=== PATIENT | male | born 1945 | race Caucasian/White ===

== ENCOUNTER 2016-06-27 01:06 | Emergency (ER) | payer BC ==
[~2016-06-27] VITALS: Ht 170.2 cm; Wt 107.5 kg
[~2016-06-27 01:06] MED LIST: ASPCH81 PO; BNC/20125 PO; CHOL1TAB4 PO; CIPR-255 PO; MULT-506 PO
[2016-06-27 01:09] VITALS: TEMP 36.8; Ht 170.2 cm; Wt 107.5 kg
[2016-06-27] MEDS ORDERED: SILD100T PO (01:19)
[2016-06-27] MEDS ORDERED: KETOROLAC TROMETHAMINE 30 MG/ML VIAL IV STA (01:22)
[2016-06-27] MEDS ORDERED: SODIUM CHLORIDE 0.9% 500ML 500 ML IV STA (01:22)
[2016-06-27 01:47] LABS: BASO % 0.3 %; BASO ABS # 0.02 K/uL (0-0.2); COMPLETE YES; EOS % 1.6 %; HEMATOCRIT 49.2 % (42-52); IG% 0.2 %; LYMPH % 19.8 %; LYMPH ABS # 1.25 K/uL (1.2-3.4); MEAN CELL VOLUME 89.9 fL (80-100); MEAN CORPUSCULAR HGB CONC 35.6 g/dl (32-36); MEAN PLATELET VOLUME 10.1 fL (7.4-10.4); MONO % 8.9 %; NEUT % 69.2 %; PLATELET COUNT 133 K/uL (130-400); RED BLOOD COUNT 5.47 M/uL (4.7-6.1)
[2016-06-27 02:07] LABS: BUN/CREATININE RATIO 27.2 (10-20); CALCIUM 8.8 mg/dl (8.5-10.1); CREATININE 0.87 mg/dl (0.60-1.40)
[2016-06-27 02:10] LABS: ALB/GLOB RATIO 1.4 (0.9-2)
[2016-06-27 03:50] VITALS: BP 140/85; PULSE 75; O2SAT 95
[2016-06-27 04:05] LABS: URINE APPEARANCE CLEAR (CLEAR); URINE BILIRUBIN NEG (NEG); URINE COLOR YELLOW; URINE NITRITE NEG (NEG); URINE SPECIFIC GRAVITY 1.018 (1.000-1.030); UROBILINOGEN NEG (NEG); ZZUR CULT IF INDIC CLEAN CATCH NO
[2016-06-27 04:06] LABS: MANUAL MICROSCOPIC REQUIRED? NO; REVIEW REQ? NO
[2016-06-27] MEDS ORDERED: CIPROFLOXACIN 500MG HOME PACK PO ONE (04:30)
[2016-06-27] MEDS ORDERED: CIPROFLOXACIN 500 MG TAB PO STA (04:30)
[2016-06-27] MEDS ORDERED: CIPR-255 PO ×2 (04:34→04:53)
--- NOTE | 2016-06-27 04:35 | EMERGENCY ROOM VISIT NOTE ---
History First contact with patient: 01:13 Chief Complaint: FLANK PAIN Stated Complaint: PAIN ON LEFT SIDE NEAR KIDNEY History of Present Illness The patient is a 71 year old male who presents to the Emergency Department by private vehicle for evaluation of his LEFT sided flank pain. He developed pain yesterday but reports increasing intensity this evening while attempting to sleep. He does report a history of kidney stones which was complicated by obstructive stone with infection and subsequent sepsis. He has followed with his urologist from [facility] for the past few years with particular focus on his prostate. He reports having no issues until yesterday. He reports feeling somewhat nauseated when the pain was most intense. He denies any radiation into his groin or testicle. He denies any burning with urination or blood in his urine. He rates his current discomfort as a 2/10. He denies any headaches , dizziness, lightheadedness, chest pain, palpitations, pleuritic pain, shortness of breath, hematemesis, hematochezia, melena, hematuria, or dysuria. Review of Systems A complete 10-point Review of Systems was discussed with the patient, with pertinent positives and negatives listed in the History of Present Illness. All remaining Review of Systems questions can be considered negative unless otherwise specified. Social History Smoking Status: Never Smoker Alcohol Use: occasionally Drug Use: none Marital Status: Housing Status: lives with family Occupation Status: retired Current/Historical Medications Scheduled Aspirin (Aspirin Tab-Chewable *), 81 MG PO DAILY Cholecalciferol (Vitamin D-3), 5,000 UNITS PO DAILY Ciprofloxacin Hcl (Cipro), 500 MG PO BID Multivitamin (Multivitamin), 1 TAB PO DAILY Sildenafil Citrate (Viagra), 100 MG PO PRN Allergies Coded Allergies: No Known Allergies (Unverified , 06/27/16) Physical Exam Vital Signs Date Time Temp Pulse Resp B/P Pulse Ox O2 Delivery O2 Flow Rate FiO2 06/27/16 03:50 75 20 140/85 95 Room Air 06/27/16 01:09 36.8 74 20 174/110 94 Room Air Pain Rating (0-10): 2 Physical Exam VITAL SIGNS - Vital signs and nursing notes were reviewed. GENERAL - 71-year-old male appearing his stated age who is in no acute distress. Communicates well with provider and answers questions appropriately. LUNGS - Chest wall symmetric without accessory muscle use, intercostals retractions, or central cyanosis. Normal vesicular breath sounds CTA B/L. No wheezes, rales, or rhonchi appreciated. CARDIAC - RRR with S1/S2. No murmur, rubs, or gallops appreciated. ABDOMEN - Abdominal contour protuberant and without pulsations or visible masses. BS normoactive all four quadrants. No tenderness to palpation appreciated throughout. No guarding. No Rebound Tenderness. Negative Rovsing's. Negative Infante's. No palpable masses, hepatosplenomegaly, or ascites noted. Positive LEFT sided CVA tenderness to percussion. PSYCH - A&Ox3 and cooperates fully with examiner. Pt is very pleasant and interacts well with examiner. Medical Decision & Procedures ER Provider Diagnostic Interpretation: Radiological imaging and reports were reviewed by myself. Radiologist's Interpretation per [facility] as follows: CT ABDOMEN & PELVIS: Basilar atelectasis and/or scarring Hepatic cysts Couple of nonobstructing intrarenal stones Bilateral perinephritic stranding, edema is nonspecific No hydronephrosis or evidence of ureteral or bladder stone 1 cm high density focus left kidney may represent a complex cyst or solid lesion May follow up with nonemergent renal ultrasound No bowel dilatation or free air A few noninflamed colonic diverticula Normal caliber appendix without secondary signs Laboratory Results 06/27/16 01:34 Red Blood Count 5.47, Mean Corpuscular Volume 89.9, Mean Corpuscular Hemoglobin 32.0, Mean Corpuscular Hemoglobin Concent 35.6, Mean Platelet Volume 10.1, Neutrophils (%) (Auto) 69.2, Lymphocytes (%) (Auto) 19.8, Monocytes (%) (Auto) 8.9, Eosinophils (%) (Auto) 1.6, Basophils (%) (Auto) 0.3, Neutrophils # (Auto) 4.36, Lymphocytes # (Auto) 1.25, Monocytes # (Auto) 0.56, Eosinophils # (Auto) 0.10, Basophils # (Auto) 0.02 06/27/16 01:34 Test 06/27/16 01:34 06/27/16 03:50 White Blood Count 6.30 K/uL (4.8-10.8) Red Blood Count 5.47 M/uL (4.7-6.1) Hemoglobin 17.5 g/dL (14.0-18.0) Hematocrit 49.2 % (42-52) Mean Corpuscular Volume 89.9 fL (80-100) Mean Corpuscular Hemoglobin 32.0 pg (25-34) Mean Corpuscular Hemoglobin Concent 35.6 g/dl (32-36) Platelet Count 133 K/uL (130-400) Mean Platelet Volume 10.1 fL (7.4-10.4) Neutrophils (%) (Auto) 69.2 % Lymphocytes (%) (Auto) 19.8 % Monocytes (%) (Auto) 8.9 % Eosinophils (%) (Auto) 1.6 % Basophils (%) (Auto) 0.3 % Neutrophils # (Auto) 4.36 K/uL (1.4-6.5) Lymphocytes # (Auto) 1.25 K/uL (1.2-3.4) Monocytes # (Auto) 0.56 K/uL (0.11-0.59) Eosinophils # (Auto) 0.10 K/uL (0-0.5) Basophils # (Auto) 0.02 K/uL (0-0.2) RDW Standard Deviation 43.1 fL (36.4-46.3) RDW Coefficient of Variation 13.0 % (11.5-14.5) Immature Granulocyte % (Auto) 0.2 % Immature Granulocyte # (Auto) 0.01 K/uL (0.00-0.02) Anion Gap 11.0 mmol/L (3-11) Est Creatinine Clear Calc Drug Dose 93.7 ml/min Estimated GFR () 102.1 Estimated GFR (Non- 88.1 BUN/Creatinine Ratio 27.2 (10-20) Calcium Level 8.8 mg/dl (8.5-10.1) Magnesium Level 2.0 mg/dl (1.8-2.4) Total Bilirubin 0.5 mg/dl (0.2-1) Aspartate Amino Transf (AST/SGOT) 23 U/L (15-37) Alanine Aminotransferase (ALT/SGPT) 34 U/L (12-78) Alkaline Phosphatase 56 U/L (45-117) Total Protein 7.1 gm/dl (6.4-8.2) Albumin 4.2 gm/dl (3.4-5.0) Globulin 2.9 gm/dl (2.5-4.0) Albumin/Globulin Ratio 1.4 (0.9-2) Lipase 127 U/L (73-393) Urine Color YELLOW Urine Appearance CLEAR (CLEAR) Urine pH 5.0 (4.5-7.5) Urine Specific [place] 1.018 (1.000-1.030) Urine Protein NEG (NEG) Urine Glucose (UA) NEG (NEG) Urine Ketones TRACE (NEG) Urine Occult Blood NEG (NEG) Urine Nitrite NEG (NEG) Urine Bilirubin NEG (NEG) Urine Urobilinogen NEG (NEG) Urine Leukocyte Esterase TRACE (NEG) Urine WBC (Auto) 1-5 /hpf (0-5) Urine RBC (Auto) 0-4 /hpf (0-4) Urine Hyaline Casts (Auto) 1-5 /lpf (0-5) Urine Epithelial Cells (Auto) 10-20 /lpf (0-5) Urine Bacteria (Auto) NEG (NEG) Medications Administered Medications (Trade) Dose Ordered Sig/Jerry Route Start Time Stop Time Status Last Admin Dose Admin Sodium Chloride (Nss 500ml) 500 ml @ 999 mls/hr Q31M STAT IV 06/27/16 01:22 06/27/16 01:52 DC 06/27/16 01:22 999 MLS/HR Ketorolac Tromethamine (Toradol Inj) 30 mg NOW STAT IV 06/27/16 01:22 06/27/16 01:24 DC 06/27/16 01:22 30 MG Ciprofloxacin (Cipro Tab) 500 mg NOW STAT PO 06/27/16 04:30 06/27/16 04:32 DC 06/27/16 04:30 500 MG Ciprofloxacin (Cipro 500MG Home Pack) 1 homepack UD ONCE PO 06/27/16 04:30 06/27/16 04:32 DC 06/27/16 04:30 1 HOMEPACK ED Course Patient was seen and evaluated by myself. Labs were drawn, saline lock in place. The patient was hydrated with a 500 mL normal saline bolus. He was treated with 30 g Toradol intravenously for pain. He declines a think stronger. CT of the abdomen and pelvis without contrast was obtained. Laboratory results demonstrate no acute leukocytosis, worrisome anemia, or bandemia. The patient has no significant electrolyte abnormalities. Urinalysis does not suggest infection. CT concerning for perinephritic stranding bilaterally despite the lack of stone. His urine is not concerning for infection or worsening symptoms consistent with pyelonephritis. Regardless , given the patient's significant history, I did elect to treat the patient with 500 mg Cipro orally. He'll replace a short course. He'll follow with his urologist from today's visit. He will follow up with a renal ultrasound. He will return for any changing or worsening symptoms. Patient discharged home afebrile and in good condition. Medical Decision Given the patient's presentation and stated complaint, I did elect to perform the above-mentioned workup. The patient presents today with LEFT-sided flank pain. He has no fever leukocytosis. His exam is consistent with some mild LEFT -sided CVA tenderness. The patient does have a significant history of his previous surgeries and manipulation. Urinalysis does not suggest infection, however urine culture is pending. He was treated with oral Cipro given his findings consistent with perinephric straining. He will follow closely with his urologist from today's visit. He will return for any changing or worsening symptoms. Patient discharged home afebrile and in good condition. In the evaluation and treatment of this patient, the following differential diagnoses were considered: Appendicitis, Diverticulitis, Diverticulosis, Colitis , Ischemic Colitis, Inflammatory Bowel Disease, Irritable Bowel Disease, Testicular Torsion, Kidney Stone, Pyelonephritis, Hydronephrosis, Cholecystitis , Ascending Cholangitis, Choledocholithiasis, GERD. Impression Primary Impression: Flank pain Additional Impression: perinephritic stranding Departure Information Dispostion Home / Self-Care Condition GOOD Prescriptions Ciprofloxacin Hcl (CIPRO) 500 Mg Tab 500 MG PO BID for 7 Days, #14 TAB Prov: Aj Ruelas PA-C 06/27/16 Referrals Harsha Nava M.D. (PCP) Patient Instructions A Signature Page, My [facility] Additional Instructions You have been treated in the Emergency Department today for flank pain. You were prescribed Cipro to be taken as prescribed. This is an antibiotic. All antibiotics have the potential to cause diarrhea. Stop this medication and contact a medical provider if you were to develop any significant adverse side effects including: wheezing, shortness of breath, passing out, vomiting, or a diffuse rash. Always take antibiotics as directed and COMPLETE the ENTIRE course regardless of the improvement of your symptoms. For pain control, you can use the following [id number]-[id number] medicines (if >12 yo): - Regular strength (325mg/tab) Tylenol (acetaminophen) 2 tabs every 4-6 hours as needed. Do not exceed 12 tablets in a 24 hour period. Avoid taking more than 4 grams (4000 mg) of Tylenol per day. This includes any other sources of acetaminophen you may take on a regular basis. - Regular strength (200 mg/tab) Advil (ibuprofen) 1-2 tabs every 4-6 hours as needed. Do not exceed a dose of 3200 mg per day. You have been provided the contact information for the on-call Urologist. You should contact the Urologist's office tomorrow to establish a follow-up appointment from today's Emergency Department visit. Return to the Emergency Department if your symptoms persist despite the treatment plan outlined above or if you develop the following symptoms: intractable pain, fever, chills, or large amounts of blood in your urine.
--- NOTE | 2016-06-27 09:07 | DIAGNOSTIC IMAGING REPORT ---
ABDOMEN AND PELVIS CT WITHOUT CONTRAST CT DOSE: 1666.44 mGy.cm HISTORY: LEFT sided flank pain - h/o ureteral shunt w/ repair TECHNIQUE: Multiaxial CT images of the abdomen and pelvis were performed without the use of intravenous and oral contrast according to the standard department stone protocol. COMPARISON STUDY: Abdomen and pelvis CT 02/15/2014. FINDINGS: Bibasilar linear densities consistent with subsegmental atelectasis. No suspicious lytic or blastic osseous lesions. The unenhanced spleen, pancreas, gallbladder, and adrenal glands are unremarkable. There is a punctate nonobstructing stone within the lower pole of the right kidney. There is also a punctate nonobstructing stone within the lower pole of the left kidney. No hydronephrosis. No ureteral calculi. The bladder is unremarkable. Multiple prostate calcifications. No retroperitoneal lymphadenopathy. Multiple hypodense lesions seen scattered throughout the liver. These likely represent hepatic cysts. These are not significantly changed. No pelvic free fluid. Suboptimal evaluation for bowel pathology due to the lack of intravenous and oral contrast. However, there is no definite bowel wall thickening or obstruction. Colonic diverticulosis. 1 cm hyperdense lesion within the left kidney. Mild bilateral perinephric edema is not significantly change. This is likely chronic. Normal appendix. IMPRESSION: 1. Bilateral nephrolithiasis. No hydronephrosis. 2. Hepatic cysts. 3. A 1 cm hyperdense lesion within the left kidney. This is incompletely characterized on this noncontrast study but may represent a hyperdense cyst. Follow-up nonemergent renal ultrasound can be used for confirmation. 4. Colonic diverticulosis. 5. Normal appendix. 6. No definite bowel wall thickening or obstruction on this noncontrast study. Electronically signed by: Jhoan Loyd M.D. 06/27/2016 9:05 AM Dictated Date/Time: 06/27/2016 8:57 AM
== END 2016-06-27 04:58 | disposition home or self-care (01) ==
LOC: C.EDB 01:07
DX: R10.9 Unspecified abdominal pain (principal); N15.1 Renal and perinephric abscess; Z79.82 Long term (current) use of aspirin

== ENCOUNTER → 2016-10-10 | Outpatient (CLI) | payer BC ==
[~2016-10-10] MED LIST changes: -BNC/20125 PO; +SILD100T PO
--- NOTE | 2016-10-10 12:53 | DIAGNOSTIC IMAGING REPORT ---
LEFT KNEE 3 VIEWS HISTORY: Left knee injury and pain. M25.562 COMPARISON: None. FINDINGS: There is no fracture or dislocation. No significant knee effusion. Tiny marginal osteophytes. Soft tissues are unremarkable. No radiopaque foreign bodies. IMPRESSION: No fractures. Electronically signed by: Jhoan Loyd M.D. 10/10/2016 12:51 PM Dictated Date/Time: 10/10/2016 12:43 PM
== END | disposition home or self-care (01) ==
LOC: C.RAD 12:13
PROVIDERS: ATTEND Family Medicine Adolescent Medicine
DX: M25.562 Pain in left knee (principal)

== ENCOUNTER → 2018-01-18 | Day surgery (SDC) | payer BC ==
[2018-01-13 08:19] VITALS: Ht 170.2 cm; Wt 113.6 kg
[~2018-01-18] VITALS: Ht 170.2 cm; Wt 113.6 kg
[~2018-01-18] MED LIST changes: -ASPCH81 PO; +ASPI81CH2 PO; -CHOL1TAB4 PO; +CHOL1TAB76 PO; -CIPR-255 PO; +GLC/500 PO; +IRBE1TAB50 PO; +LIDOCAINE HCL 2% 2 ML VIAL (20MG/ML) ONE; +MIDAZOLAM HCL 1 MG/ML 2ML VIAL ONE; +NAPR1TAB9 PO; +PROPOFOL IV EMULSION 10 MG/ML 20 ML VIAL ONE
[2018-01-18 12:41] VITALS: TEMP 36.4
--- NOTE | 2018-01-18 13:07 | Endo History and Physical ---
History & Physical Date of Service: Jan 18, 2018. Chief Complaint: Screening Referring Physician: Dr. Harsha Nava History of Present Illness screening colon Past Surgical History Hx Cardiac Surgery: Yes (HEART CATH, NO STENTS 5 YRS AGO) Hx Internal Defibrillator: No Hx Pacemaker: No Hx Abdominal Surgery: No Hx of Implantable Prosthesis: No Hx Cancer Surgery: No Hx Thoracic Surgery: No Hx Orthopedic: No Hx Urinary Tract Surgery: Yes (SCROTAL HERNIA, KIDNEY SX, TURP?, PROSTATECTOMY) Family History None Social History Smoking Status: Former Smoker Hx Substance Use: No Hx Alcohol Use: Yes (OCCASIONAL BEER) Allergies Coded Allergies: No Known Allergies (Verified , 01/18/18) Current Medications Reported Home Medications Medications Dose Route/Sig Max Daily Dose Days Date Category Irbesartan 300 Mg Tab 1 Tab PO QAM 01/13/18 Reported Aleve (Naproxen) 220 Mg Tab 440 Mg PO DAILY PRN 01/13/18 Reported Glucophage (Metformin Hcl) 500 Mg Tab 500 Mg PO DAILY 01/13/18 Reported D 2000 (Cholecalciferol) 2,000 Unit Tab 1 Tab PO DAILY 01/13/18 Reported Aspirin 81 Mg Chw 1 Tab PO DAILY 01/13/18 Reported Viagra (Sildenafil Citrate) 100 Mg Tab 100 Mg PO PRN 06/27/16 Reported Multivitamin (Multivitamins) Tab 1 Tab PO DAILY 01/18/11 Reported Vital Signs Weight (Kilograms): 113.64 Height (Feet): 5 Height (Inches): 7 Date Time Temp Pulse Resp B/P (MAP) Pulse Ox O2 Delivery O2 Flow Rate FiO2 01/18/18 12:41 36.4 70 20 165/95 (118) 94 Room Air Physical Exam General Appearance: WD/WN, no apparent distress Respiratory/Chest: Auscultation: breath sounds normal Cardiovascular: Heart Auscultation: RRR Abdomen: Bowel Sounds: normal Inspection & Palpation: soft, non-distended, no tenderness, guarding & rebound Assessment and Plan colonscopy screening
--- NOTE | 2018-01-18 14:09 | Discharge Instructions ---
Endoscopy Patient Instructions Date / Procedure(s) Performed Jan 18, 2018. Colonoscopy Allergy Information Coded Allergies: No Known Allergies (Verified , 01/18/18) Discharge Date / Findings Jan 18, 2018. colon with polyp removal Medication Instructions Stopped Medication(s): Patient was told to take only his bp med this am. Restart Stopped Medication(s): Reported Home Medications Medications Dose Route/Sig Max Daily Dose Days Date Category Irbesartan 300 Mg Tab 1 Tab PO QAM 01/13/18 Reported Aleve (Naproxen) 220 Mg Tab 440 Mg PO DAILY PRN 01/13/18 Reported Glucophage (Metformin Hcl) 500 Mg Tab 500 Mg PO DAILY 01/13/18 Reported D 2000 (Cholecalciferol) 2,000 Unit Tab 1 Tab PO DAILY 01/13/18 Reported Aspirin 81 Mg Chw 1 Tab PO DAILY 01/13/18 Reported Viagra (Sildenafil Citrate) 100 Mg Tab 100 Mg PO PRN 06/27/16 Reported Multivitamin (Multivitamins) Tab 1 Tab PO DAILY 01/18/11 Reported Reported Home Medications Medications Dose Route/Sig Max Daily Dose Days Date Category Irbesartan 300 Mg Tab 1 Tab PO QAM 01/13/18 Reported Aleve (Naproxen) 220 Mg Tab 440 Mg PO DAILY PRN 01/13/18 Reported Glucophage (Metformin Hcl) 500 Mg Tab 500 Mg PO DAILY 01/13/18 Reported D 2000 (Cholecalciferol) 2,000 Unit Tab 1 Tab PO DAILY 01/13/18 Reported Aspirin 81 Mg Chw 1 Tab PO DAILY 01/13/18 Reported Viagra (Sildenafil Citrate) 100 Mg Tab 100 Mg PO PRN 06/27/16 Reported Multivitamin (Multivitamins) Tab 1 Tab PO DAILY 01/18/11 Reported Provider Instructions Activity Restrictions - No exercising or heavy lifting for 24 hours. - Do not drink alcohol the day of the procedure. - Do not drive a car or operate machinery until the day after the procedure. - Do not make any important decisions or sign important papers in 24 hours after the procedure. Following Day: - Return to full activity which may include returning to work/school. Diet Start your diet with liquids and light foods (jello, soup, juice, toast). Then eat your usual diet if not nauseated. Treatment For Common After Affects For mild abdominal pain, bloating, or excessive gas: - Rest - Eat lightly - Lie on right side Follow-Up Information Follow-up with Dr. Harsha Nava as scheduled Anesthesia Information What You Should Know You have had a procedure that required some medicine to reduce anxiety and discomfort. This treatment is called moderate sedation. After receiving the treatment, you may be sleepy, but you will be able to breathe on your own. The effects of the treatment may last for several hours. Follow these instructions along with Activity/Diet recommendations noted above: * Do NOT do anything where dizziness or clumsiness would be dangerous. * Rest quietly at home today, then you can be up and about tomorrow. * Have a responsible person stay with you the rest of today. * You may have had an I.V. today. If so, you may take the dressing off later today. Recommendations Call your doctor if: * Trouble breathing * Continuous vomiting for more than 24 hours * Temperature above 101 degrees * Severe abdominal pain or bloating * Pain not relieved by pain medicine ordered * There is increased drainage or redness from any incision * A large amount of rectal bleeding greater than 2-3 tablespoons. (If you had a polyp/s removed or have hemorrhoids, a small amount of blood - from the rectum is to be expected.) * You have any unanswered questions or concerns. IN THE EVENT OF A SERIOUS EMERGENCY, GO TO THE NEAREST EMERGENCY ROOM Your discharge instructions were prepared by provider London Banegas. Patient Instructions Signature Page Delmer Leiva Patient (or Guardian) Signature/Date: I have read and understand the instructions given to me by my caregivers. Caregiver/RN/Doctor Signature/Date: The above-named patient and/or guardian has received patient instructions on this date. + Original Patient Signature Page (only) stays with chart. Please make copy for patient.
--- NOTE | 2018-01-18 14:17 | GI REPORT ---
Patient Name: Delmer Leiva Procedure Date: 01/18/2018 12:48 PM Date of : 1945 Admit Type: Outpatient Age: 72 Gender: Male Attending MD: London Banegas MD Procedure: Colonoscopy Providers: London Banegas MD Referring MD: Harsha Nava Indications: Screening for colorectal malignant neoplasm Medicines: Propofol per Anesthesia Complications: No immediate complications. Estimated blood loss: Minimal. Estimated Blood Loss: Estimated blood loss was minimal. Procedure: Pre-Anesthesia Assessment: - Prior to the procedure, a History and Physical was performed, and patient medications and allergies were reviewed. The patient's tolerance of previous anesthesia was also reviewed. The risks and benefits of the procedure and the sedation options and risks were discussed with the patient. All questions were answered, and informed consent was obtained. Prior Anticoagulants: The patient has taken no previous anticoagulant or antiplatelet agents. ASA Grade Assessment: II - A patient with mild systemic disease. After reviewing the risks and benefits, the patient was deemed in satisfactory condition to undergo the procedure. After I obtained informed consent, the scope was passed under direct vision. Throughout the procedure, the patient's blood pressure, pulse, and oxygen saturations were monitored continuously. The scope was introduced through the anus and advanced to the cecum, identified by appendiceal orifice and ileocecal valve. The colonoscopy was performed without difficulty. The patient tolerated the procedure well. The quality of the bowel preparation was good. Findings: The perianal and digital rectal examinations were normal. Pertinent negatives include normal sphincter tone, no palpable rectal lesions and no anal lesion or abnormality was detected. A 5 mm polyp was found in the ileocecal valve. The polyp was sessile. The polyp was removed with a cold snare. Resection and retrieval were complete. Estimated blood loss was minimal. Verification of patient identification for the specimen was done by the physician and marine engineering technicians using the patient's name and medical record number. A 4 mm polyp was found in the sigmoid colon. The polyp was sessile. The polyp was removed with a cold snare. Resection and retrieval were complete. Estimated blood loss was minimal. Verification of patient identification for the specimen was done by the physician and marine engineering technicians using the patient's name and medical record number. A 3 mm polyp was found in the rectum. The polyp was sessile. The polyp was removed with a cold snare. Resection and retrieval were complete. Estimated blood loss was minimal. Verification of patient identification for the specimen was done by the physician and marine engineering technicians using the patient's name and medical record number. The exam was otherwise without abnormality. The retroflexed view of the distal rectum and anal verge was normal and showed no anal or rectal abnormalities. Impression: - One 5 mm polyp at the ileocecal valve, removed with a cold snare. Resected and retrieved. - One 4 mm polyp in the sigmoid colon, removed with a cold snare. Resected and retrieved. - One 3 mm polyp in the rectum, removed with a cold snare. Resected and retrieved. - The examination was otherwise normal. - The distal rectum and anal verge are normal on retroflexion view. Recommendation: - Discharge patient to home (ambulatory). - Resume regular diet. - Await pathology results. - Repeat colonoscopy for surveillance based on pathology results. - Return to referring physician as previously scheduled. MD London Calixto MD 01/18/2018 2:16:59 PM This report has been signed electronically. Note Initiated On: 01/18/2018 12:48 PM Number of Addenda: 0 I attest to the content of the Intraoperative Record and orders documented therein, exceptions below {[id number]}
--- NOTE | 2018-01-18 14:21 | Anesthesiology Progress Note ---
Anesthesia Post Op Note Date & Time Jan 18, 2018 at 14:21 Vital Signs Pain Intensity: 0 Vital Signs Past 12 Hours Date Time Temp Pulse Resp B/P (MAP) Pulse Ox O2 Delivery O2 Flow Rate FiO2 01/18/18 14:14 75 20 137/66 (89) 97 Room Air 01/18/18 14:06 61 20 142/87 (105) 93 Room Air 01/18/18 13:50 68 20 141/87 (105) 93 Room Air 01/18/18 12:41 36.4 70 20 165/95 (118) 94 Room Air Notes Mental Status: alert / awake / arousable, participated in evaluation Pt Amnestic to Procedure: Yes Nausea / Vomiting: adequately controlled Pain: adequately controlled Airway Patency, RR, SpO2: stable & adequate BP & HR: stable & adequate Hydration State: stable & adequate Anesthetic Complications: no major complications apparent
[2018-01-18 14:23] VITALS: BP 139/98; PULSE 61; O2SAT 95
== END | disposition home or self-care (01) ==
LOC: C.GI 12:09
PROVIDERS: ATTEND Internal Medicine Gastroenterology
DX: Z12.11 Encounter for screening for malignant neoplasm of colon (principal); D12.0 Benign neoplasm of cecum; D12.8 Benign neoplasm of rectum; K63.5 Polyp of colon; E11.9 Type 2 diabetes mellitus without complications; I10 Essential (primary) hypertension; E66.9 Obesity, unspecified; Z79.82 Long term (current) use of aspirin; Z79.84 Long term (current) use of oral hypoglycemic drugs; Z87.891 Personal history of nicotine dependence

== ENCOUNTER 2021-11-09 13:11 | Inpatient (IN) ==
[2021-11-09] MEDS ORDERED: SODIUM CHLORIDE 0.9% 500 ML IV SCH (14:00)
[2021-11-09 14:16] LABS: Basophils # (auto) 0.01 K/uL (0-0.2); Basophils % (auto) 0.2 %; Eosinophils # (auto) 0.07 K/uL (0-0.5); Eosinophils % (auto) 1.2 %; Hematocrit (blood only) 46.1 % (42-52); Hemoglobin 15.7 g/dL (14.0-18.0); Immature Granulocytes # (auto) 0.02 K/uL (0.00-0.02); Immature Granulocytes % (auto) 0.3 %; Lymphocytes % (auto) 27.4 %; Mean Corpuscular Hemoglobin 31.6 pg (25-34); Mean Corpuscular Hgb Conc 34.1 g/dL (32-36); Mean Corpuscular Volume 92.8 fL (80-100); Mean Platelet Volume 10.3 fL (7.4-10.4); Monocytes # (auto) 0.54 K/uL (0.11-0.59); Monocytes % (auto) 9.3 %; Neutrophils # (auto) 3.59 K/uL (1.4-6.5); Neutrophils % (auto) 61.6 %; Platelet Count 178 K/uL (130-400); RDW Coefficient of Variation 13.5 % (11.5-14.5); Red Blood Count 4.97 M/uL (4.7-6.1); White Blood Count 5.83 K/uL (4.8-10.8)
--- NOTE | 2021-11-09 14:25 | Emergency Department Note ---
Impression & Plan Acute confusion, Falling, Difficulty balancing, Brain mass ED Provider Note NAME: CHOLO VALENTE AGE: 76 SEX: M : 1945 ARRIVES VIA: Ambulance INFORMANT: [Patient][family] ED PROVIDER(S): [Leonardo Aleman MD] CHIEF COMPLAINT: Weakness, fall HISTORY OF PRESENT ILLNESS: The patient is a 76-year-old male who believes he has had increasing weakness and fatigue and some confusion for the last month to 6 weeks. In the last 2 weeks he has fallen 3 times. As per his son, things are worsening especially in the last week or so. The patient did fall today at around noon time, he did not suffer any injuries. He felt a bit dizzy before falling. There was no loss of consciousness. The patient has been depressed since his in February 2020. He does live with his son. The patient is not suicidal. He thinks depression is part of his issue. There has been no fever, no cough or congestion or shortness of breath. He has not had urinary complaints. He did have a bout of diarrhea today, it was not bloody or black. The patient has no issues with his speech, no drooling. No weakness to 1 side of the body or the other. He has a lot of issues with his balance though as per his son, this is why he falls. REVIEW OF SYSTEMS: See HPI for pertinent positives and negatives. A total of ten systems were reviewed and were otherwise negative. PMHx/PSHx: See Below SOCIAL HISTORY: See Below. PHYSICAL EXAM: GENERAL: Patient is in no acute distress. HEENT: No acute trauma, normocephalic atraumatic, mucous membranes moist, no nasal congestion, no scleral icterus. NECK: No stridor, no adenopathy, no meningismus, trachea is midline. LUNGS: Clear to auscultation bilaterally, no wheeze, no rhonchi, breath sounds equal. HEART: Without murmurs gallops or rubs, regular rate and rhythm. ABDOMEN: Soft, nontender, bowel sounds positive, no hernias, no peritonitis. EXTREMITIES: No cyanosis, mild bilateral pedal edema, full range of motion of all the joints without pain or difficulty, no signs for acute trauma. NEUROLOGIC: Oriented x 3, no acute motor or sensory deficits, no focal weakness. No speech slur or facial droop. SKIN: No rash, no jaundice, no diaphoresis. DIFFERENTIAL DIAGNOSIS: Infection, UTI, depression, dehydration, metabolic abnormality, hypo/hyperglycemia, electrolyte disturbance, anemia, hypoxia, cardiac sources, intracerebral event, toxicologic issues, stroke, TIA, as well as other pat hologies. EMERGENCY DEPARTMENT COURSE/PROCEDURES: ECG: Indication was weakness. The ECG shows a sinus rhythm with a PVC. The rate is 65. There is no ST elevation, no PACs. The QTC is 432. Continuous Cardiac Monitoring: An order was placed for continuous cardiac monitoring. The monitor shows a rate of 67 with sinus rhythm with PVCs. MEDICAL DECISION MAKING: There is no leukocytosis or concerning anemia. There is a normal platelet count. There is no significant electrolyte abnormality or kidney failure. No concerning liver enzyme elevation. Ammonia level is not elevated. TSH was somewhat high but the T4 was normal. COVID test returned negative. Influenza and RSV test returned negative. Chest film did not show pneumonia or CHF. Brain CT shows a large mass in the right temporal parietal lobe with some midline shift. Edema was seen around the mass. On exam, the patient was not in pain. He was not toxic. No speech slur. Patient was given IV Decadron, 6 mg. I spoke to the patient and his family. I spoke with case management. I did talk with Dr. Arreguin the neurosurgeon from [facility]. He did accept the patient to his service however, there were no beds available at [facility] this evening. He asked that we admit the patient to the hospital as we wait for a bed opening at [facility], likely tomorrow. I spoke with the patient again, I talked with the on-call hospitalist. Certainly, the findings on CT imaging explain the patient's presentation. Past Med/Surg History Medical History Diabetes type 2, controlled Hypertension Social History Smoking Status: Former smoker Tobacco Type: Cigarettes Second Hand Exposure: No; Do You Dip or Chew Tobacco: No; Hx Alcohol Use: Yes Alcohol type: beer Hx Substance Use: No Preferred Language: Niuean Credit Report Checker Required: No Beliefs That Will Affect Care: None Current Living Situation: Family Current Living Situation Comment: Pt. lives at home with son Other Information That Helps Us Care for You: No Feels Safe at Home: Yes Safety Concerns: Feels Safe At This Time Assistive Devices: Glasses Allergies Allergies Allergy/AdvReac Type Severity Reaction Status Date / Time No Known Allergies Allergy Verified 11/09/21 17:11 Home Meds Home Medications Medication Instructions Recorded Confirmed aspirin 81 mg tablet,delayed 81 mg PO DAILY 11/09/21 11/09/21 release chlorthalidone 25 mg tablet 12.5 mg PO DAILY 11/09/21 11/09/21 cholecalciferol (vitamin D3) 50 50 mcg PO DAILY 11/09/21 11/09/21 mcg (2,000 unit) capsule (Vitamin D3) irbesartan 300 mg tablet 300 mg PO HS 11/09/21 11/09/21 metformin 500 mg tablet,extended 500 mg PO DAILY 11/09/21 11/09/21 release 24 hr multivitamin 1 tab PO DAILY 11/09/21 11/09/21 naproxen sodium 220 mg tablet 440 mg PO DIRECTED PRN 11/09/21 11/09/21 (Aleve) vit C 250 mg-vit E 90 mg-zinc 40 1 tab PO BID 11/09/21 11/09/21 mg-copper 1 [id number] capsule (PreserVision AREDS-2) Results & Data (ED) Vital Signs Vital Signs - 24 hr 11/09/21 13:18 11/09/21 14:02 11/09/21 15:00 Temperature 36.6 C Temperature Source Oral Pulse Rate 67 Pulse Rate [Apical] 66 Respiratory Rate 16 18 Respiratory Effort / Characteristics Non-Labored Blood Pressure 115/67 Blood Pressure [Left Arm] 131/77 Blood Pressure Mean 83 Blood Pressure Mean [Left Arm] 95 Pulse Oximetry 92 92 96 Oxygen Delivery Method Room Air Room Air Room Air Sepsis Recent Fever Within 48 Hours No Sepsis New/Unexplained Change in Mental Status N/A Sepsis Action Taken by Nursing No Action Required 11/09/21 16:44 11/09/21 18:00 Temperature Temperature Source Pulse Rate Pulse Rate [Apical] 710 H 73 Respiratory Rate 15 14 Respiratory Effort / Characteristics Non-Labored Blood Pressure Blood Pressure [Left Arm] 144/88 H 169/88 H Blood Pressure Mean Blood Pressure Mean [Left Arm] 106 115 Pulse Oximetry 95 97 Oxygen Delivery Method Room Air Room Air Sepsis Recent Fever Within 48 Hours Sepsis New/Unexplained Change in Mental Status Sepsis Action Taken by [facility] Medications Current Medication List: was personally reviewed by me Laboratory Data Attestation: I reviewed the patient's lab results. Result diagrams: 11/09/21 13:21 11/09/21 13:21 Lab Results 11/09/21 11/09/21 11/09/21 Range/Units 13:21 13:21 13:21 WBC 5.83 (4.8-10.8) K/uL RBC 4.97 (4.7-6.1) M/uL Hgb 15.7 (14.0-18.0) g/dL Hct 46.1 (42-52) % MCV 92.8 (80-100) fL MCH 31.6 (25-34) pg MCHC 34.1 (32-36) g/dL RDW Std Deviation 46.0 (36.4-46.3) fL RDW Coeff of Darrick 13.5 (11.5-14.5) % Plt Count 178 (130-400) K/uL MPV 10.3 (7.4-10.4) fL Immature Gran % (Auto) 0.3 % Neut % (Auto) 61.6 % Lymph % (Auto) 27.4 % Evans % (Auto) 9.3 % Eos % (Auto) 1.2 % Baso % (Auto) 0.2 % Neut # (Auto) 3.59 (1.4-6.5) K/uL Lymph # (Auto) 1.60 (1.2-3.4) K/uL Evans # (Auto) 0.54 (0.11-0.59) K/uL Eos # (Auto) 0.07 (0-0.5) K/uL Baso # (Auto) 0.01 (0-0.2) K/uL Immature Gran # (Auto) 0.02 (0.00-0.02) K/uL Sodium 139 (136-145) mmol/L Potassium 3.8 (3.5-5.1) mmol/L Chloride 102 (98-107) mmol/L Carbon Dioxide 28 (21-32) mmol/L Anion Gap 9 (3-11) BUN 23 (6-23) mg/dl Creatinine 0.92 (0.6-1.4) mg/dl Est Cr Clr Drug Dosing 85.5 ml/min Est GFR ( Amer) 94.6 ml/min Est GFR (Non-Af Amer) 81.6 ml/min BUN/Creatinine Ratio 25.0 H (10-20) Glucose 109 H (70-99(Fasting)) mg/dl Calcium 9.4 (8.5-10.1) mg/dl Magnesium 2.3 (1.7-2.4) mg/dl Total Bilirubin 0.6 (0.2-1.0) mg/dl AST 14 (13-39) U/L ALT 18 (7-52) U/L Alkaline Phosphatase 47 (34-104) U/L Ammonia Total Protein 6.6 (6.0-8.3) gm/dl Albumin 4.4 (3.4-5.0) gm/dl Globulin 2.2 L (2.5-4.0) gm/dl Albumin/Globulin Ratio 2.0 (0.9-2) TSH 8.234 H (0.300-4.500) uIu/ml Free T4 0.92 (0.61-1.60) ng/dl SARS-CoV-2 (PCR) (Negative) Influenza Type A (PCR) (Neg) Influenza Type B (PCR) (Neg) RSV (RT-PCR) (Neg) 11/09/21 11/09/21 11/09/21 Range/Units 14:13 14:13 15:08 WBC (4.8-10.8) K/uL RBC (4.7-6.1) M/uL Hgb (14.0-18.0) g/dL Hct (42-52) % MCV (80-100) fL MCH (25-34) pg MCHC (32-36) g/dL RDW Std Deviation (36.4-46.3) fL RDW Coeff of Darrick (11.5-14.5) % Plt Count (130-400) K/uL MPV (7.4-10.4) fL Immature Gran % (Auto) % Neut % (Auto) % Lymph % (Auto) % Evans % (Auto) % Eos % (Auto) % Baso % (Auto) % Neut # (Auto) (1.4-6.5) K/uL Lymph # (Auto) (1.2-3.4) K/uL Evans # (Auto) (0.11-0.59) K/uL Eos # (Auto) (0-0.5) K/uL Baso # (Auto) (0-0.2) K/uL Immature Gran # (Auto) (0.00-0.02) K/uL Sodium (136-145) mmol/L Potassium (3.5-5.1) mmol/L Chloride (98-107) mmol/L Carbon Dioxide (21-32) mmol/L Anion Gap (3-11) BUN (6-23) mg/dl Creatinine (0.6-1.4) mg/dl Est Cr Clr Drug Dosing ml/min Est GFR ( Amer) ml/min Est GFR (Non-Af Amer) ml/min BUN/Creatinine Ratio (10-20) Glucose (70-99(Fasting)) mg/dl Calcium (8.5-10.1) mg/dl Magnesium (1.7-2.4) mg/dl Total Bilirubin (0.2-1.0) mg/dl AST (13-39) U/L ALT (7-52) U/L Alkaline Phosphatase (34-104) U/L Ammonia Cancelled 35.0 Total Protein (6.0-8.3) gm/dl Albumin (3.4-5.0) gm/dl Globulin (2.5-4.0) gm/dl Albumin/Globulin Ratio (0.9-2) TSH (0.300-4.500) uIu/ml Free T4 (0.61-1.60) ng/dl SARS-CoV-2 (PCR) NEGATIVE (Negative) Influenza Type A (PCR) Negative (Neg) Influenza Type B (PCR) Negative (Neg) RSV (RT-PCR) Negative (Neg) Administered Medications Discontinued Medications Dexamethasone Sodium Phosphate (DexamethasonePf 10 Mg/Ml Vial) 6 mg IV NOW ONE Stop: 11/09/21 16:29 Last Admin: 11/09/21 16:42 Dose: 6 mg Documented by: [id number] Sodium Chloride (Nss) 500 mls @ 999 mls/hr IV .Q31M CHRIST Stop: 11/09/21 14:30 Last Infusion: 11/09/21 14:59 Dose: 0 mls/hr Documented by: [id number] Admin: 11/09/21 14:15 Dose: 999 mls/hr Documented by: [id number] Imaging Data Radiologist's Impression: Chest X-Ray 11/09/21 13:57 XR chest 1V portable CLINICAL HISTORY: weakness COMPARISON STUDY: Chest radiograph January 18, 2011. FINDINGS: Lung volumes are mildly diminished. There is no consolidation to suggest pneumonia. Linear left lower lung opacities reflect atelectasis or scarring. There is no pneumothorax or pleural effusion. Mild cardiomegaly is unchanged. Mediastinal contours are normal. There is no evidence for pulmonary edema. IMPRESSION: No acute cardiopulmonary findings. ACT 112: Negative or not required by law. Electronically signed by: Evangelista Miranda M.D. 11/09/2021 2:[address] 11/09/21 13:57 CT head/brain wo con CLINICAL HISTORY: confused COMPARISON STUDY: No previous studies for comparison. CT DOSE: 894.57 mGycm TECHNIQUE: Standard CT of the Brain was performed without IV contrast. A dose lowering technique was utilized adhering to the principles of ALARA. FINDINGS: There is evidence for a large mass lesion involving the right temporal parietal lobe with surrounding edema present. This produces compression upon the right lateral ventricle with midline shift to the right by approximately 8 10 mm. Extraaxial space: There is no evidence for subdural hematoma. There are no extra-axial fluid collections. Parenchyma: There is no subarachnoid or intraparenchymal hemorrhage. No definite evidence for an acute infarct is seen. There is homogeneous attenuation of the brain parenchyma. No other mass lesions are identified. Osseous structures: There is no evidence for an acute fracture. The visualized paranasal sinuses are clear. The mastoid air cells are clear bilaterally. Soft tissues: There is no evidence for focal soft tissue swelling. IMPRESSION: 1. Evidence for large mass lesion involving the right temporal parietal lobe with marked surrounding edema and mass effect upon the right lateral ventricle. There is midline shift to the left by 10 mm. Follow-up CT with contrast is recommended for further evaluation. ACT 112: Negative or not required by law. Electronically signed by: King Dias M.D. 11/09/2021 3:33 PM Discharge Plan Visit Data Chief Complaint: Fall ED Provider: Leonardo Aleman Discharge Problem: Acute confusion, Falling, Difficulty balancing, Brain mass Patient Disposition: Admitted As Inpatient Condition: Good Discharge Instructions Interventions: ED Discharge Assessment Last Done: 11/09/21 19:41
[2021-11-09 14:26] LABS: Albumin Level 4.4 gm/dl (3.4-5.0); Bilirubin,Total 0.6 mg/dl (0.2-1.0); Calcium 9.4 mg/dl (8.5-10.1); Creatinine Clr Calc Pharmacy 85.5 ml/min; Est GFR (African American) 94.6 ml/min; Est GFR (Non-African American) 81.6 ml/min; Globulin 2.2 gm/dl (2.5-4.0); Magnesium 2.3 mg/dl (1.7-2.4); Potassium 3.8 mmol/L (3.5-5.1); Total Protein 6.6 gm/dl (6.0-8.3)
[2021-11-09 14:39] LABS: Thyroid Stimulating Hormone 8.234 uIu/ml (0.300-4.500)
--- NOTE | 2021-11-09 14:45 | XRay Report ---
XR chest 1V portable CLINICAL HISTORY: weakness COMPARISON STUDY: Chest radiograph January 18, 2011. FINDINGS: Lung volumes are mildly diminished. There is no consolidation to suggest pneumonia. Linear left lower lung opacities reflect atelectasis or scarring. There is no pneumothorax or pleural effusi on. Mild cardiomegaly is unchanged. Mediastinal contours are normal. There is no evidence for pulmona ry edema. IMPRESSION: No acute cardiopulmonary findings. ACT 112: Negative or not required by law. Electronically signed by: Evangelista Miranda M.D. 11/09/2021 2:43 PM
[2021-11-09 15:20] LABS: Influenza A virus by PCR Negative (Neg); Influenza B virus by PCR Negative (Neg); RSV by PCR Negative (Neg); SARS CoV2 RNA(COVID-19) InHosp NEGATIVE (Negative)
--- NOTE | 2021-11-09 15:35 | CT Scan Report ---
CT head/brain wo con CLINICAL HISTORY: confused COMPARISON STUDY: No previous studies for comparison. CT DOSE: 894.57 mGycm TECHNIQUE: Standard CT of the Brain was performed without IV contrast. A dose lowering technique was utilized adhering to the principles of ALARA. FINDINGS: There is evidence for a large mass lesion involving the right temporal parietal lobe with s urrounding edema present. This produces compression upon the right lateral ventricle with midline teresa ft to the right by approximately 8 10 mm. Extraaxial space: There is no evidence for subdural hematoma. There are no extra-axial fluid collecti ons. Parenchyma: There is no subarachnoid or intraparenchymal hemorrhage. No definite evidence for an acut e infarct is seen. There is homogeneous attenuation of the brain parenchyma. No other mass lesions ar e identified. Osseous structures: There is no evidence for an acute fracture. The visualized paranasal sinuses are clear. The mastoid air cells are clear bilaterally. Soft tissues: There is no evidence for focal soft tissue swelling. IMPRESSION: 1. Evidence for large mass lesion involving the right temporal parietal lobe with marked surrounding edema and mass effect upon the right lateral ventricle. There is midline shift to the left by 10 mm. Follow-up CT with contrast is recommended for further evaluation. ACT 112: Negative or not required by law. Electronically signed by: King Dias M.D. 11/09/2021 3:33 PM
[2021-11-09 16:08] LABS: T4 Free Thyroxine 0.92 ng/dl (0.61-1.60)
[2021-11-09] MEDS ORDERED: dexAMETHasone**PF** 10 MG/ML VIAL IV ONE (16:28)
--- NOTE | 2021-11-09 17:36 | History & Physical Report ---
Date of Service November 09, 2021 Assessment & Plan (1) Brain tumor: Plan: Presents after a fall with balance instability CT scan performed 11/09/2021 Evidence for large mass lesion involving the right temporal parietal lobe with marked surrounding edema and mass effect upon the right lateral ventricle. There is midline shift to the left by 10 mm. Follow-up CT with contrast is recommended for further evaluation. As mentioned ER contacted [facility] Dr. Arreguin recommended transfer however they cannot have a bed recommended continuing dexamethasone and holding until bed availability opens up Personally phoned [facility] transfer center and they said he is on the list they have many beds awaiting for neuro bed placement however they will be in touch with us to keep us informed of transport status to this and if transport is arranged he will need transport paperwork completed (2) Hypertension: Plan: We will continue chlorthalidone and irbesartan or formulary equivalent (3) Diabetes type 2, controlled: Plan: Metformin is held carbohydrate conservative diet, sliding scale insulin will be employed without basal rate unless his glucoses become more difficult to control Plan: DVT prevention is SCDs History of Present Illness Primary Care Provider: Harsha Nava MD 76-year-old male found to have a very large right-sided brain tumor on imaging of his brain on 11/09/2021. Patient presented to the ER after a fall at home but feeling dizzy or falling. Patient has been depressed since his in February 2020 with a son he denies suicidal ideation. Otherwise he is been feeling typically well the exception of the fall and little bit of loose bowels today. The emergency room physician, Dr. Leonardo Aleman, arranged for transfer to [facility] accepted by Dr. Arreguin with regard to neurosurgery. However transfer center from [facility] called back and now states they have no bed availability but will try to get have him come down in the next [address] Arreguin recommended continual intravenous dexamethasone Allergies Allergy/AdvReac Type Severity Reaction Status Date / Time No Known Allergies Allergy Verified 11/09/21 17:11 Home Medications Medication Instructions Recorded Confirmed Type aspirin 81 mg tablet,delayed 81 mg PO DAILY 11/09/21 11/09/21 History release chlorthalidone 25 mg tablet 12.5 mg PO DAILY 11/09/21 11/09/21 History cholecalciferol (vitamin D3) 50 50 mcg PO DAILY 11/09/21 11/09/21 History mcg (2,000 unit) capsule (Vitamin D3) irbesartan 300 mg tablet 300 mg PO HS 11/09/21 11/09/21 History metformin 500 mg tablet,extended 500 mg PO DAILY 11/09/21 11/09/21 History release 24 hr multivitamin 1 tab PO DAILY 11/09/21 11/09/21 History naproxen sodium 220 mg tablet 440 mg PO DIRECTED PRN 11/09/21 11/09/21 History (Aleve) vit C 250 mg-vit E 90 mg-zinc 40 1 tab PO BID 11/09/21 11/09/21 History mg-copper 1 [id number] capsule (PreserVision AREDS-2) Past Med/Surg History Medical History (Updated 11/09/21 @ 17:41 by Soren Sharma MD) Diabetes type 2, controlled Hypertension Social History Smoking Status: Former smoker Tobacco Type: Cigarettes Feels Safe at Home: Yes Review of Systems Review of Systems: Mild distress and fatigue no headache, no visual changes no speech or swallowing issues no chest pain, pressure or palpitations no shortness of breath, cough or wheezes no abdominal pain, nausea or vomiting, diarrhea or constipation no dysuria, hematuria or frequency no focal joint pain or swelling no back pain, CVA tenderness or radicular pain no bruising, bleeding or rashes no focal signs of weakness or numbness or altered sensation no complaints of anxiety or depression.. Physical Exam Physical Exam: The patient appeared well nourished and normally developed. Vital signs as documented. Head exam is normocephalic atraumatic Neck is without JVD, thyromegaly, or carotid bruits. Lungs are clear to auscultation, no focal loss of breath sounds Cardiac exam, Rhythm is regular.. No murmurs, rubs or gallops. Abdominal exam reveals normal bowel sounds, soft non tender, no masses Extremities are nonedematous and both pedal pulses are present Neurologic exam is alert and oriented, no focal loss of strength or sensation Skin is without bruises or rashes Psychologically is without concerns for anxiety or depression.. Results & Data Results & Data ([facility]) Vital Signs (Past 12 Hours) Vital Signs Temp Pulse Pulse Resp BP BP Pulse Ox 11/09/21 16:44 710 H 15 144/88 H 95 11/09/21 15:00 66 18 131/77 96 11/09/21 14:02 92 11/09/21 13:18 97.9 F 67 16 115/67 92 Diagnostic Findings Chest X-Ray 11/09/21 13:57 XR chest 1V portable CLINICAL HISTORY: weakness COMPARISON STUDY: Chest radiograph January 18, 2011. FINDINGS: Lung volumes are mildly diminished. There is no consolidation to suggest pneumonia. Linear left lower lung opacities reflect atelectasis or scarring. There is no pneumothorax or pleural effusion. Mild cardiomegaly is unchanged. Mediastinal contours are normal. There is no evidence for pulmonary edema. IMPRESSION: No acute cardiopulmonary findings. ACT 112: Negative or not required by law. Electronically signed by: Evangelista Miranda M.D. 11/09/2021 2:[address] 11/09/21 13:57 CT head/brain wo con CLINICAL HISTORY: confused COMPARISON STUDY: No previous studies for comparison. CT DOSE: 894.57 mGycm TECHNIQUE: Standard CT of the Brain was performed without IV contrast. A dose lowering technique was utilized adhering to the principles of ALARA. FINDINGS: There is evidence for a large mass lesion involving the right temporal parietal lobe with surrounding edema present. This produces compression upon the right lateral ventricle with midline shift to the right by approximately 8 10 mm. Extraaxial space: There is no evidence for subdural hematoma. There are no extra-axial fluid collections. Parenchyma: There is no subarachnoid or intraparenchymal hemorrhage. No definite evidence for an acute infarct is seen. There is homogeneous attenuation of the brain parenchyma. No other mass lesions are identified. Osseous structures: There is no evidence for an acute fracture. The visualized paranasal sinuses are clear. The mastoid air cells are clear bilaterally. Soft tissues: There is no evidence for focal soft tissue swelling. IMPRESSION: 1. Evidence for large mass lesion involving the right temporal parietal lobe with marked surrounding edema and mass effect upon the right lateral ventricle. There is midline shift to the left by 10 mm. Follow-up CT with contrast is recommended for further evaluation. ACT 112: Negative or not required by law. Electronically signed by: King Dias M.D. 11/09/2021 3:33 PM PG Care Time/CCT Total # of Minutes Spent Total Time Spent with Patient: Total time spent is greater than 50% in coordination of care (as documented) at patient's floor/unit and/or counseling patient: Coding Level of Care Code 86387 Initial Inpt Care Lvl 2 Diagnoses Hypertension I10 Diabetes type 2, controlled E11.9 Brain tumor D49.6
[2021-11-09] MEDS ORDERED: CARBOHYDRATES FOR HYPOGLYCEMIA PO PRN (20:45)
[2021-11-09] MEDS ORDERED: ONDANSETRON INJ 2 MG/ML 2 ML VIAL IV PRN (20:45)
[2021-11-09] MEDS ORDERED: ALUMINUM/MAGNESIUM SUSP 30 ML UDC PO PRN (20:45)
[2021-11-09] MEDS ORDERED: GLUCAGON FOR INJ 1 MG VIAL SQ PRN (20:45)
[2021-11-09] MEDS ORDERED: ACETAMINOPHEN 500 MG TAB PO PRN (20:45)
[2021-11-09] MEDS ORDERED: DEXTROSE 50% 50 ML SYRINGE IV PRN (20:45)
[2021-11-09] MEDS ORDERED: GLUCOSE 10 TABS/TUBE PO PRN (20:45)
[2021-11-09] MEDS ORDERED: GLUCOSE 40% GEL 15 GM TUBE PO PRN (20:45)
[2021-11-09] MEDS ORDERED: NON-FORMULARY MEDICATION (Vit C,E-Zn-Coppr-Lutein-Zeaxan [Preservision Areds-2] 250-90-40- PO SCH (21:00)
[2021-11-09] MEDS ORDERED: IRBESARTAN 150 MG TAB PO SCH (21:00)
[2021-11-09] MEDS: dexAMETHasone 4 MG in SYRINGE 0 ML IV SCH (22:39)
[2021-11-09] MEDS: INSULIN ASPART PER UNIT SC SCH (22:52)
[2021-11-10] MEDS: dexAMETHasone 4 MG in SYRINGE 0 ML IV SCH ×2 (03:49→09:03)
[2021-11-10 07:28] LABS: Hematocrit (blood only) 44.5 % (42-52); Hemoglobin 15.6 g/dL (14.0-18.0); Mean Corpuscular Hemoglobin 32.2 pg (25-34); Mean Corpuscular Hgb Conc 35.1 g/dL (32-36); Mean Corpuscular Volume 91.8 fL (80-100); Mean Platelet Volume 10.3 fL (7.4-10.4); Platelet Count 166 K/uL (130-400); RDW Coefficient of Variation 13.1 % (11.5-14.5); RDW Standard Deviation 43.7 fL (36.4-46.3); Red Blood Count 4.85 M/uL (4.7-6.1); White Blood Count 8.42 K/uL (4.8-10.8)
[2021-11-10 07:58] LABS: BUN Creatinine Ratio 23.1 (10-20); Calcium 9.4 mg/dl (8.5-10.1); Creatinine Clr Calc Pharmacy 99.1 ml/min; Est GFR (African American) 103.1 ml/min; Est GFR (Non-African American) 88.9 ml/min; Magnesium 2.1 mg/dl (1.7-2.4); Potassium 4.1 mmol/L (3.5-5.1)
[2021-11-10 08:52] LABS: Estimated Average Glucose 126 mg/dl
[2021-11-10] MEDS ORDERED: CHOLECALCIFEROL 1,000 UNITS 25 MCG TAB PO SCH (09:00)
[2021-11-10] MEDS ORDERED: CHLORTHALIDONE 25 MG TAB PO SCH (09:00)
[2021-11-10] MEDS ORDERED: metFORMIN HCL ER 500 MG TABCR PO SCH (09:00)
[2021-11-10] MEDS ORDERED: MULTIVITAMIN TAB PO SCH (09:00)
[2021-11-10] MEDS: INSULIN ASPART PER UNIT SC SCH (09:01)
--- NOTE | 2021-11-10 14:39 | Electrocardiogram Report ---
Test Reason : Blood Pressure : / mmHG Vent. Rate : 065 BPM Atrial Rate : 065 BPM P-R Int : 194 ms QRS Dur : 100 ms QT Int : 416 ms P-R-T Axes : 072 -18 007 degrees QTc Int : 432 ms Poor data quality, interpretation may be adversely affected Sinus rhythm with occasional Premature ventricular complexes Otherwise normal ECG When compared with ECG of 18-JAN-2011 13:29, Premature ventricular complexes are now Present Confirmed by Conner Torrez ([id number]) on 11/10/2021 2:39:31 PM Referred By: REFERRED SELF Confirmed By:Conner Torrez
== END 2021-11-10 10:40 | disposition short-term general hospital (02) | DRG 55 ==
LOC: ED 13:11 → 3N 18:18 → SUATTDRO 18:18 → 3N 19:41

== ENCOUNTER 2022-02-10 13:56 | Inpatient (IN) ==
--- NOTE | 2022-02-10 15:10 | CT Scan Report ---
CT head/brain wo con CLINICAL HISTORY: ams, brain cancer Technique: Contiguous axial CT images of the head were acquired from the base of the skull to the bobo nereyda without intravenous contrast administration. Images were viewed in brain, subdural and bone [employer]. Automated dose lowering techniques and/or adjustment according to patient size were utilized for this exam. Comparison: None available at the time of this dictation low-resolution CT head 12/15/2021. Findings: Chronic appearing encephalomalacia in the right temporal lobe is seen. Postsurgical changes are seen in the right calvarium. A large arachnoid cyst on the left is unchanged. Imaged portions of the paranasal sinuses and mastoid air cells are clear. The orbits appear normal. Impression: Encephalomalacia and postsurgical changes are seen in the right brain, unchanged. No acute abnormalit ies are seen. ACT 112: Negative or not required by law. Electronically signed by: Jose Meneses M.D. 02/10/2022 3:09 PM
[2022-02-10] MEDS ORDERED: SODIUM CHLORIDE 0.9% 1000ML 1,000 ML IV ONE (15:26)
--- NOTE | 2022-02-10 15:28 | XRay Report ---
XR chest 1V portable CLINICAL HISTORY: weakness COMPARISON STUDY: Chest radiograph November 20, 2021. FINDINGS: Lung volumes are diminished. This is unchanged. No pneumothorax or pleural effusion is note d. Cardiomediastinal silhouette is stable. No evidence for pulmonary edema. No consolidation to sugge st pneumonia. Appearance of the chest is unchanged. IMPRESSION: No acute cardiopulmonary findings. No change in appearance of the chest. ACT 112: Negative or not required by law. Electronically signed by: Evangelista Miranda M.D. 02/10/2022 3:27 PM
--- NOTE | 2022-02-10 15:29 | Emergency Department Note ---
Impression & Plan Fatigue, Glioblastoma multiforme of brain, Weakness ED Provider Note Provider: Gregory Ybarra MD DATE OF SERVICE: 02/10/2022 CHIEF COMPLAINT: Lethargic/fatigue HISTORY OF PRESENT ILLNESS: Patient is a 76-year-old gentleman history of GBM the brain and type 2 diabetes following with oncology and neurosurgery in [place] presenting today referred from radiation oncology worse was to have his last of 30 brain radiation treatments due to lethargy. Lives with son. Son reports the patient's been more fatigued and not eating or drinking much over the last 2 to 3 days. No falls this week but may be 1 last week. Patient states his knees tenderness but this is been a bit of a chronic issue predominately the right knee. Denies other pains. Denies lightheaded or dizziness. States he feels just very tired. No nausea vomiting or diarrhea reported. No chest pain or shortness of breath reported. No URI symptoms or fever reported. Decreased oral intake for last several days. Currently on chemotherapy as well. Oncologist at [facility]. REVIEW OF SYSTEMS: A total of 10 review of systems was obtained and negative except as stated above in the HPI. PAST MEDICAL HISTORY: As noted above MEDICATIONS: Reviewed home medications SOCIAL HISTORY: Lives at home with son and does have some home care nursing. PHYSICAL EXAM: GENERAL: Fatigued but alert to verbal stimuli, occasionally sleeping Head: Atraumatic with healed right-sided postsurgical wounds. EYES: No injection, discharge or icterus. PERRL, EOMI. NECK: Trachea midline. Supple. ENT: Mucous membranes pink and moist. LUNGS: Airway patent. No retractions. Breath sounds clear with good air entry bilaterally. HEART: Regular tachycardic rate and rhythm. No chest wall tenderness ABDOMEN: Soft and non-tender, without guarding or rebound. SKIN: Acyanotic, warm, dry, without rashes EXTREMITIES: Without swelling, tenderness or deformity no significant tenderness or pain with ROM of the right knee. No swelling or effusion or erythema noted here. NEUROLOGICAL: No aphasia or slurred speech. Drowsy but arousable to voice during exam. Moves all extremities. EK bpm sinus tachycardia occasional PVC. No acute ST segment elevation with nonspecific inferior T wave changes. Left axis. QTC 570. CONTINUOUS CARDIAC MONITORING: was ordered and showed a heart rate of 90s-110s bpm in NSR to sinus tachycardia Patient's laboratory studies and imaging reviewed. Differential includes Infection, dehydration, metabolic abnormality, hypo/hyperglycemia, electrolyte disturbance, anemia, hypoxia, cardiac sources, intracerebral event, toxicologic, neurologic, as well as other pathologies. IMPRESSION/MEDICAL DECISION MAKING: Patient nonfocal but is fatigued on exam. CT of the head completed per radi ology report without significant abnormality noted. Tachycardic given some IV fluid has had had some decreased intake. No evidence of significant swelling or cellulitis of the lower extremities or involving the knees noted. Benign abdomen on exam. Labs are completed to look for possible metabolic or infectious etiology. Blood work here without significant anemia or leukocytosis. Hyponatremia. Stable renal function. AST and ALT are elevated today but not alkaline phosphatase or bilirubin interestingly. Procalcitonin elevated. TSH within normal limits. Ammonia not elevated. Troponin within normal limits. VBG completed for completeness. Patient's after some IV fluids heart rates around 100. Not hypotensive. Unsure of exact etiology of his lethargy but is more awake on reevaluation. Family and patient states he has been a 2 assist of recent. Patient and family concerned about his ability around well at home and needs help. Case management discussed possible rehab options. They decided to pursue placement services. DIAGNOSIS: weakness, fatigue, brain cancer DISPOSITION: Hospitalist will evaluate Patient was agreeable with this plan. Past Med/Surg History Medical History (Updated 02/10/22 @ 20:54 by Gregory Ybarra M.D.) Asthma Diabetes type 2, controlled Glioblastoma multiforme of brain Hypertension Knee pain Obesity Surgical History History of cardiac catheterization (2012) History of colonoscopy (01/17/08) History of colonoscopy (06/03/21) History of craniotomy (11/13/21) Right-sided Temporal Craniotomy for a Right-sided Temporal Partial Lobectomy and Resection of Brain Tumor Dr. Jakub Arreguin at [facility] History of inguinal hernia repair Left History of prostate biopsy History of [place] [facility] [place] History of tonsillectomy and adenoidectomy History of ureteroscopy stent and nephrostomy placement and reversal Social History Smoking Status: Former smoker Tobacco Type: Cigarettes Number of Years Since Quit: 30; Second Hand Exposure: No; Hx Alcohol Use: Yes Alcohol type: beer Hx Substance Use: No Preferred Language: [place] Communication Ability: Effective Visual Impairment: Limited Hearing Ability: Normal Public Speaking Professor Required: No Beliefs That Will Affect Care: None Current Living Situation: Family Current Living Situation Comment: Pt. lives at home with son Feels Safe at Home: Yes Childhood Exposure to Second-Hand Smoke: No caffeine: Yes (minimal intake) during the past year weight has: remained stable Dental Care, Regularly: Yes Assistive Devices: None Allergies Allergies Allergy/AdvReac Type Severity Reaction Status Date / Time No Known Allergies Allergy Verified 02/08/22 15:08 Home Meds Home Medications Medication Instructions Recorded Confirmed chlorthalidone 25 mg tablet 12.5 mg PO Q48H 11/09/21 02/08/22 cholecalciferol (vitamin D3) 50 50 mcg PO QAM 11/09/21 02/08/22 mcg (2,000 unit) capsule (Vitamin D3) irbesartan 300 mg tablet 300 mg PO HS 11/09/21 02/08/22 metformin 500 mg tablet,extended 500 mg PO QDD 11/09/21 02/08/22 release 24 hr multivitamin 1 tab PO DAILY 11/09/21 02/08/22 albuterol sulfate 90 mcg/actuation 2 puff inhalation QID PRN Wheezing 11/20/21 02/08/22 aerosol inhaler aspirin 81 mg tablet,delayed 81 mg PO QAM 11/20/21 02/08/22 release calcium carbonate 200 mg calcium 200 mg PO UD PRN Acid Reflux 11/20/21 02/08/22 (500 mg) chewable tablet (Tums) glucosamine sulf dipot 1 cap PO DAILY 11/20/21 02/08/22 chlr,msm,chond 550 mg-C 30 mg-bart 1 mg capsule (Glucosamine Chondroitin) melatonin 5 mg tablet 5 mg PO HS PRN Insomnia 11/20/21 02/08/22 sildenafil 100 mg tablet 100 mg PO DAILY PRN Erectile 11/20/21 02/08/22 Dysfunction docusate sodium 100 mg capsule 100 mg PO BID 12/09/21 02/08/22 (Colace) ondansetron HCl 4 mg tablet 4 mg PO Q8H PRN nausea and vomiting 12/09/21 02/08/22 temozolomide 140 mg capsule 140 mg PO DAILY 01/11/22 02/08/22 temozolomide 20 mg capsule 20 mg PO 01/11/22 02/08/22 naproxen sodium 220 mg capsule 440 mg PO BID PRN 01/19/22 02/08/22 (Aleve) Results & Data (ED) Vital Signs Vital Signs - 24 hr 02/10/22 13:59 02/10/22 15:34 02/10/22 17:02 Temperature 36.5 C Temperature Source Temporal Artery Scan Pulse Rate 119 H Pulse Rate [Apical] 113 H 101 H Respiratory Rate 32 H 15 18 Respiratory Effort / Characteristics Non-Labored Respiratory Depth Normal Respiratory Pattern Regular Blood Pressure 151/83 H Blood Pressure [Right Arm] 160/109 H 178/104 H Blood Pressure Mean 105 Blood Pressure Mean [Right Arm] 126 128 Blood Pressure Position Sitting Pulse Oximetry 92 93 Oxygen Delivery Method Room Air Room Air Room Air Sepsis New/Unexplained Change in Mental Status N/A Sepsis Action Taken by Nursing No Action Required 02/10/22 17:01 02/10/22 17:01 02/10/22 18:00 Temperature Temperature Source Pulse Rate 101 H Pulse Rate [Apical] Respiratory Rate 20 Respiratory Effort / Characteristics Respiratory Depth Respiratory Pattern Blood Pressure 178/104 H 157/105 H Blood Pressure [Right Arm] Blood Pressure Mean 128 122 Blood Pressure Mean [Right Arm] Blood Pressure Position Pulse Oximetry Oxygen Delivery Method Sepsis New/Unexplained Change in Mental Status Sepsis Action Taken by Nursing 02/10/22 18:00 Temperature Temperature Source Pulse Rate 100 H Pulse Rate [Apical] Respiratory Rate 18 Respiratory Effort / Characteristics Respiratory Depth Respiratory Pattern Blood Pressure Blood Pressure [Right Arm] Blood Pressure Mean Blood Pressure Mean [Right Arm] Blood Pressure Position Pulse Oximetry Oxygen Delivery Method Sepsis New/Unexplained Change in Mental Status Sepsis Action Taken by Nursing Laboratory Data Result diagrams: 02/10/22 15:00 02/10/22 15:00 Lab Results 02/10/22 02/10/22 02/10/22 Range/Units 15:00 15:00 15:00 WBC 5.46 (4.8-10.8) K/ul RBC 5.20 (4.63-6.08) M/uL Hgb 15.7 (14.0-18.0) g/dl Hct 46.3 (40.1-51.0) % MCV 89.0 (80.0-100.0) fL MCH 30.2 (25.0-34.0) pg MCHC 33.9 (32.0-36.0) g/dL RDW Std Deviation 45.4 (36.4-46.3) fL RDW Coeff of Darrick 14.1 (11.5-14.5) % Plt Count 194 (130-400) K/uL MPV 9.2 L (9.4-12.4) fL Immature Gran % (Auto) 0.5 % Neut % (Auto) 86.2 % Lymph % (Auto) 5.1 % King % (Auto) 7.3 % Eos % (Auto) 0.4 % Baso % (Auto) 0.5 % Neut # (Auto) 4.70 (1.4-6.5) K/uL Lymph # (Auto) 0.28 L (1.2-3.4) K/uL King # (Auto) 0.40 (0.24-0.82) K/uL Eos # (Auto) 0.02 (0-0.50) K/uL Baso # (Auto) 0.03 (0-0.2) K/uL Immature Gran # (Auto) 0.03 H (0.00-0.02) K/uL VBG pH (7.36-7.41) VBG pCO2 (38-50) mmHg VBG pO2 mmHg VBG HCO3 mmol/L VBG O2 Saturation % VBG Base Excess mEq/L Sodium 132 L (136-145) mmol/L Potassium 4.0 (3.5-5.1) mmol/L Chloride 93 L (98-107) mmol/L Carbon Dioxide 29 (21-32) mmol/L Anion Gap 10 (3-11) BUN 27 H (6-23) mg/dl Creatinine 0.97 (0.6-1.4) mg/dl Est Cr Clr Drug Dosing Not Reportable Est GFR ( Amer) 88.8 ml/min Est GFR (Non-Af Amer) 76.6 ml/min BUN/Creatinine Ratio 27.8 H (10-20) Glucose 161 H (70-99(Fasting)) mg/dl Lactate (0.4-2.0) mmol/L Calcium 9.8 (8.5-10.1) mg/dl Total Bilirubin 1.0 (0.2-1.0) mg/dl AST 87 H (13-39) U/L ALT 225 H (7-52) U/L Alkaline Phosphatase 71 (34-104) U/L Ammonia (18-72) umol/L Troponin I High Sens 9.0 (0-20) pg/ml Total Protein 7.1 (6.0-8.3) gm/dl Albumin 4.4 (3.4-5.0) gm/dl Globulin 2.7 (2.5-4.0) gm/dl Albumin/Globulin Ratio 1.6 (0.9-2) Procalcitonin (0-0.5) ng/ml TSH 1.742 (0.300-4.500) uIu/ml SARS-CoV-2, RNA, NAAT (NEGATIVE) 02/10/22 02/10/22 02/10/22 Range/Units 15:00 15:53 15:53 WBC (4.8-10.8) K/ul RBC (4.63-6.08) M/uL Hgb (14.0-18.0) g/dl Hct (40.1-51.0) % MCV (80.0-100.0) fL MCH (25.0-34.0) pg MCHC (32.0-36.0) g/dL RDW Std Deviation (36.4-46.3) fL RDW Coeff of Darrick (11.5-14.5) % Plt Count (130-400) K/uL MPV (9.4-12.4) fL Immature Gran % (Auto) % Neut % (Auto) % Lymph % (Auto) % King % (Auto) % Eos % (Auto) % Baso % (Auto) % Neut # (Auto) (1.4-6.5) K/uL Lymph # (Auto) (1.2-3.4) K/uL King # (Auto) (0.24-0.82) K/uL Eos # (Auto) (0-0.50) K/uL Baso # (Auto) (0-0.2) K/uL Immature Gran # (Auto) (0.00-0.02) K/uL VBG pH (7.36-7.41) VBG pCO2 (38-50) mmHg VBG pO2 mmHg VBG HCO3 mmol/L VBG O2 Saturation % VBG Base Excess mEq/L Sodium (136-145) mmol/L Potassium (3.5-5.1) mmol/L Chloride (98-107) mmol/L Carbon Dioxide (21-32) mmol/L Anion Gap (3-11) BUN (6-23) mg/dl Creatinine (0.6-1.4) mg/dl Est Cr Clr Drug Dosing Est GFR ( Amer) ml/min Est GFR (Non-Af Amer) ml/min BUN/Creatinine Ratio (10-20) Glucose (70-99(Fasting)) mg/dl Lactate 1.2 (0.4-2.0) mmol/L Calcium (8.5-10.1) mg/dl Total Bilirubin (0.2-1.0) mg/dl AST (13-39) U/L ALT (7-52) U/L Alkaline Phosphatase (34-104) U/L Ammonia 26.0 (18-72) umol/L Troponin I High Sens (0-20) pg/ml Total Protein (6.0-8.3) gm/dl Albumin (3.4-5.0) gm/dl Globulin (2.5-4.0) gm/dl Albumin/Globulin Ratio (0.9-2) Procalcitonin < 0.05 (0-0.5) ng/ml TSH (0.300-4.500) uIu/ml SARS-CoV-2, RNA, NAAT (NEGATIVE) 02/10/22 02/10/22 Range/Units 15:53 18:41 WBC (4.8-10.8) K/ul RBC (4.63-6.08) M/uL Hgb (14.0-18.0) g/dl Hct (40.1-51.0) % MCV (80.0-100.0) fL MCH (25.0-34.0) pg MCHC (32.0-36.0) g/dL RDW Std Deviation (36.4-46.3) fL RDW Coeff of Darrick (11.5-14.5) % Plt Count (130-400) K/uL MPV (9.4-12.4) fL Immature Gran % (Auto) % Neut % (Auto) % Lymph % (Auto) % King % (Auto) % Eos % (Auto) % Baso % (Auto) % Neut # (Auto) (1.4-6.5) K/uL Lymph # (Auto) (1.2-3.4) K/uL King # (Auto) (0.24-0.82) K/uL Eos # (Auto) (0-0.50) K/uL Baso # (Auto) (0-0.2) K/uL Immature Gran # (Auto) (0.00-0.02) K/uL VBG pH 7.45 H (7.36-7.41) VBG pCO2 45 (38-50) mmHg VBG pO2 38 mmHg VBG HCO3 31 mmol/L VBG O2 Saturation 67.4 % VBG Base Excess 6.4 mEq/L Sodium (136-145) mmol/L Potassium (3.5-5.1) mmol/L Chloride (98-107) mmol/L Carbon Dioxide (21-32) mmol/L Anion Gap (3-11) BUN (6-23) mg/dl Creatinine (0.6-1.4) mg/dl Est Cr Clr Drug Dosing Est GFR ( Amer) ml/min Est GFR (Non-Af Amer) ml/min BUN/Creatinine Ratio (10-20) Glucose (70-99(Fasting)) mg/dl Lactate (0.4-2.0) mmol/L Calcium (8.5-10.1) mg/dl Total Bilirubin (0.2-1.0) mg/dl AST (13-39) U/L ALT (7-52) U/L Alkaline Phosphatase (34-104) U/L Ammonia (18-72) umol/L Troponin I High Sens (0-20) pg/ml Total Protein (6.0-8.3) gm/dl Albumin (3.4-5.0) gm/dl Globulin (2.5-4.0) gm/dl Albumin/Globulin Ratio (0.9-2) Procalcitonin (0-0.5) ng/ml TSH (0.300-4.500) uIu/ml SARS-CoV-2, RNA, NAAT NEGATIVE (NEGATIVE) Administered Medications Discontinued Medications Sodium Chloride (Nss 1000ml) 1,000 mls @ 999 mls/hr IV .Q1H1M ONE Stop: 02/10/22 16:26 Last Infusion: 02/10/22 17:20 Dose: 0 mls/hr Documented By: Admin: 02/10/22 15:55 Dose: 999 mls/hr Documented By: TRINO Imaging Data Radiologist's Impression: Chest X-Ray 02/10/22 14:06 XR chest 1V portable CLINICAL HISTORY: weakness COMPARISON STUDY: Chest radiograph November 20, 2021. FINDINGS: Lung volumes are diminished. This is unchanged. No pneumothorax or pleural effusion is noted. Cardiomediastinal silhouette is stable. No evidence for pulmonary edema. No consolidation to suggest pneumonia. Appearance of the chest is unchanged. IMPRESSION: No acute cardiopulmonary findings. No change in appearance of the chest. ACT 112: Negative or not required by law. Electronically signed by: Evangelista Miranda M.D. 02/10/2022 3:[address] 02/10/22 14:14 CT head/brain wo con CLINICAL HISTORY: ams, brain cancer Technique: Contiguous axial CT images of the head were acquired from the base of the skull to the vertex without intravenous contrast administration. Images were viewed in brain, subdural and bone windows. Automated dose lowering techniques and/or adjustment according to patient size were utilized for this exam. Comparison: None available at the time of this dictation low-resolution CT head 12/15/2021. Findings: Chronic appearing encephalomalacia in the right temporal lobe is seen. Postsurgical changes are seen in the right calvarium. A large arachnoid cyst on the left is unchanged. Imaged portions of the paranasal sinuses and mastoid air cells are clear. The orbits appear normal. Impression: Encephalomalacia and postsurgical changes are seen in the right brain, unchanged. No acute abnormalities are seen. ACT 112: Negative or not required by law. Electronically signed by: Jose Meneses M.D. 02/10/2022 3:09 PM Discharge Plan Visit Data Chief Complaint: Lethargic Stated Complaint: LETHARGIC, BRAIN [place] ED Provider: Gregory Ybarra Discharge Problem: Fatigue, Glioblastoma multiforme of brain, Weakness Patient Disposition: Being Evaluated by Hospitalist Forms Stand Alone Forms: My [facility] [employer] Prescriptions Prescriptions: No Action ondansetron HCl 4 mg tablet 4 mg PO Q8H PRN (Reason: nausea and vomiting) docusate sodium [Colace] 100 mg capsule 100 mg PO BID temozolomide 140 mg capsule 140 mg PO DAILY Rx Instructions: must be taken on empty stomach temozolomide 20 mg capsule 20 mg PO naproxen sodium [Aleve] 220 mg capsule 440 mg PO BID PRN multivitamin Tablet 1 tab PO DAILY chlorthalidone 25 mg tablet 12.5 mg PO Q48H Rx Instructions: duration 90 days metformin 500 mg tablet extended release 24 hr 500 mg PO QDD irbesartan 300 mg tablet 300 mg PO HS Rx Instructions: duration 90 days cholecalciferol (vitamin D3) [Vitamin D3] 50 mcg (2,000 unit) Capsule 50 mcg PO QAM aspirin [Aspir-81] 81 mg Tablet,Delayed Release (Dr/Ec) 81 mg PO QAM Rx Instructions: hold until 11/23/21 calcium carbonate [Tums] 200 mg calcium (500 mg) Tablet,Chewable 200 mg PO UD PRN (Reason: Acid Reflux) melatonin 5 mg Tablet 5 mg PO HS PRN (Reason: Insomnia) sildenafil 100 mg Tablet 100 mg PO DAILY PRN (Reason: Erectile Dysfunction) Rx Instructions: take one tablet by mouth 1 hour prior to activity on an empty stomach as needed for erectile dysfunction albuterol sulfate 90 mcg/actuation Hfa Aerosol Inhaler 2 puff INHALATION QID PRN (Reason: Wheezing) Glucosamine Chondroitin 550-30-1 mg Capsule 1 cap PO DAILY Referrals Referrals: Harsha Nava MD [Primary Care Provider] -
[2022-02-10 15:50] LABS: Basophils # (auto) 0.03 K/uL (0-0.2); Basophils % (auto) 0.5 %; Eosinophils # (auto) 0.02 K/uL (0-0.50); Eosinophils % (auto) 0.4 %; Hematocrit (blood only) 46.3 % (40.1-51.0); Hemoglobin 15.7 g/dl (14.0-18.0); Immature Granulocytes # (auto) 0.03 K/uL (0.00-0.02); Immature Granulocytes % (auto) 0.5 %; Lymphocytes # (auto) 0.28 K/uL (1.2-3.4); Lymphocytes % (auto) 5.1 %; Mean Corpuscular Hemoglobin 30.2 pg (25.0-34.0); Mean Corpuscular Hgb Conc 33.9 g/dL (32.0-36.0); Mean Platelet Volume 9.2 fL (9.4-12.4); Monocytes % (auto) 7.3 %; Neutrophils % (auto) 86.2 %; Platelet Count 194 K/uL (130-400); RDW Coefficient of Variation 14.1 % (11.5-14.5); RDW Standard Deviation 45.4 fL (36.4-46.3); White Blood Count 5.46 K/ul (4.8-10.8)
[2022-02-10 16:09] LABS: Base Excess VBG 6.4 mEq/L; HCO3 VBG 31 mmol/L; Oxygen Saturation VBG 67.4 %; PCO2 VBG 45 mmHg (38-50); PO2 VBG 38 mmHg; pH VBG 7.45 (7.36-7.41)
[2022-02-10 16:22] LABS: Alanine Aminotransferase 225 U/L (7-52); Albumin Globulin Ratio 1.6 (0.9-2); Albumin Level 4.4 gm/dl (3.4-5.0); Alkaline Phosphatase 71 U/L (34-104); Anion Gap 10 (3-11); Aspartate Aminotransferase 87 U/L (13-39); BUN Creatinine Ratio 27.8 (10-20); Blood Urea Nitrogen 27 mg/dl (6-23); Calcium 9.8 mg/dl (8.5-10.1); Carbon Dioxide 29 mmol/L (21-32); Chloride 93 mmol/L (98-107); Est GFR (African American) 88.8 ml/min; Est GFR (Non-African American) 76.6 ml/min; Globulin 2.7 gm/dl (2.5-4.0); Glucose 161 mg/dl (70-99(Fasting)); Sodium 132 mmol/L (136-145); Total Protein 7.1 gm/dl (6.0-8.3)
--- NOTE | 2022-02-10 16:31 | Electrocardiogram Report ---
Test Reason : Blood Pressure : / mmHG Vent. Rate : 113 BPM Atrial Rate : 113 BPM P-R Int : 194 ms QRS Dur : 104 ms QT Int : 416 ms P-R-T Axes : 076 -33 000 degrees QTc Int : 570 ms Sinus tachycardia with occasional Premature ventricular complexes Left axis deviation Poor R wave progression, consider anterior VT vs. lead placement vs. LVH Abnormal ECG When compared with ECG of 20-NOV-2021 12:44, Premature ventricular complexes are now Present Vent. rate has increased BY 58 BPM Confirmed by Isreal Gonsales ([id number]) on 02/10/2022 4:30:51 PM Referred By: REFERRED SELF Confirmed By:Isreal Gonsales
--- NOTE | 2022-02-10 18:55 | History & Physical Report ---
Date of Service February 10, 2022 Assessment & Plan (1) Glioblastoma multiforme of brain: Plan: Currently undergoing radiaton and chemotherapy [facility] onc at [facility] - missed radiation today- rad onc consultaiton placed for therpay evaluation while in house - Temozolomide on hold- son states he finished this yesterday- non-formulary - Patient wishes to remain full code but has living will at home - continue to discuss code status for emergencies - son is going to continue to discuss with his dad and brother - notes that they did discuss prior and function and quality of life was important without pain and suffering (2) Decreased functional mobility and endurance: Plan: likey secondary to above with stress of treatments - he has no focal deficits as he was able to help me slide him up in bed - PT/OT with ability to participate and needed support to maintain physical abilities (3) Asthma: Plan: Last spirometry 2007 - continue albuterol (4) Diabetes type 2, controlled: Plan: sliding scale aspart follow may need basal insulin added (5) Hypertension: Plan: Continue with irbesartan or equivalent - irbesartan appears to have been started in November from Losartan - continue chlorthalidone (6) Transaminitis: Plan: Elevated with normal bili and alkp04 was normal in November prior to chemo and radiation - Ammonia 26 - follow in AM - WBC normal - PCT <0.05 History of Present Illness Primary Care Provider: Harsha Nava MD 76 YOM with medcial history of : asthma, DM II, HTN, Chronic knee pain, catheter ablation for XX, ambulatory dysfunction, brain tumor currently undergoing oral chemo (last dose today) and radiation (missed appointment today). Patient presents to the EMD today for increase in fatigue and inability to manage at home with mobility, physical therapy. He has home health and physical therapy that comes to the house, but due to his weight and increase in fatigue and weakness over the past 2 weeks they are having hard time getting him to mobilize safely or participate in his therapy. Over the past 2 weeks with his therapy he has become fatigued to where he has stopped ambulating as much and depnending on his wheel chair more often. They are having trouble at home getting onto and off of the toilet as well. His balance and endurance for his legs is decreasing. Patient will be admitted for PT/OT evaluation and director case consultation for evalutin of return to [facility]. Patient was previously discharged from [facility] and has been home for about a month. Patient was diagnosed with glioblastoma following a fall with hemorrhage. He underwent resection 11/08 and lesion removal. He then started chemo and radiation therapy and he remains following with neuro-oncology at [facility]. He is currently undergoing radiation and just finished his oral temozolomide p er son. His plan is to then have follow up imaging in February and then progress to further therapy with chemo and radiation. Overall the patient is fatigued and his goals are to return to a "normal state". We did discuss that goal right now would be to remain at a functional level through his treatments, he would be open to returning to a rehab facility. COVID test on admission is: NEGATIVe Allergies Allergy/AdvReac Type Severity Reaction Status Date / Time No Known Allergies Allergy Verified 02/08/22 15:08 Home Medications Medication Instructions Recorded Confirmed Type chlorthalidone 25 mg tablet 12.5 mg PO Q48H 11/09/21 02/08/22 History cholecalciferol (vitamin D3) 50 50 mcg PO QAM 11/09/21 02/08/22 History mcg (2,000 unit) capsule (Vitamin D3) irbesartan 300 mg tablet 300 mg PO HS 11/09/21 02/08/22 History metformin 500 mg tablet,extended 500 mg PO QDD 11/09/21 02/08/22 History release 24 hr multivitamin 1 tab PO DAILY 11/09/21 02/08/22 History albuterol sulfate 90 mcg/actuation 2 puff inhalation QID PRN Wheezing 11/20/21 02/08/22 History aerosol inhaler aspirin 81 mg tablet,delayed 81 mg PO QAM 11/20/21 02/08/22 History release calcium carbonate 200 mg calcium 200 mg PO UD PRN Acid Reflux 11/20/21 02/08/22 History (500 mg) chewable tablet (Tums) glucosamine sulf dipot 1 cap PO DAILY 11/20/21 02/08/22 History chlr,msm,chond 550 mg-C 30 mg-bart 1 mg capsule (Glucosamine Chondroitin) melatonin 5 mg tablet 5 mg PO HS PRN Insomnia 11/20/21 02/08/22 History sildenafil 100 mg tablet 100 mg PO DAILY PRN Erectile 11/20/21 02/08/22 History Dysfunction docusate sodium 100 mg capsule 100 mg PO BID 12/09/21 02/08/22 History (Colace) ondansetron HCl 4 mg tablet 4 mg PO Q8H PRN nausea and vomiting 12/09/21 02/08/22 History temozolomide 140 mg capsule 140 mg PO DAILY 01/11/22 02/08/22 History temozolomide 20 mg capsule 20 mg PO 01/11/22 02/08/22 History naproxen sodium 220 mg capsule 440 mg PO BID PRN 01/19/22 02/08/22 History (Aleve) Past Med/Surg History Medical History (Updated 02/10/22 @ 20:54 by Gregory Ybarra M.D.) Asthma Diabetes type 2, controlled Glioblastoma multiforme of brain Hypertension Knee pain Obesity Surgical History History of cardiac catheterization (2012) History of colonoscopy (01/17/08) History of colonoscopy (06/03/21) History of craniotomy (11/13/21) Right-sided Temporal Craniotomy for a Right-sided Temporal Partial Lobectomy and Resection of Brain Tumor Dr. Jakub Arreg[facility] History of inguinal hernia repair Left History of prostate biopsy History of prostatectomy [facility] Dr. Merino History of tonsillectomy and adenoidectomy History of ureteroscopy stent and nephrostomy placement and reversal Social History Smoking Status: Former smoker Tobacco Type: Cigarettes Number of Years Since Quit: 30; Second Hand Exposure: No; Hx Alcohol Use: Yes Alcohol type: beer Hx Substance Use: No Preferred Language: Armenian Communication Ability: Impaired Visual Impairment: Limited Hearing Ability: Normal Digital Account Manager Required: No Beliefs That Will Affect Care: None Current Living Situation: Family Current Living Situation Comment: son Feels Safe at Home: Yes Safety Concerns: Feels Safe At This Time Childhood Exposure to Second-Hand Smoke: No caffeine: Yes (minimal intake) during the past year weight has: remained stable Dental Care, Regularly: Yes Assistive Devices: None Review of Systems Review of Systems: REVIEW OF SYSTEMS: Constitutional: No fever, sweats or chills Eyes: No diplopia, no worsening or blurred vision ENT: normal hearing, no trouble swallowing Respiratory: No cough, sputum, dyspnea at rest or on exertion Cardiovascular: No chest pain, tightness or palpitations Abdomen: No pain, nausea, vomiting, diarrhea or constipation Musculoskeletal: (+) weakness, and decrease strength, Neurologic: No weakness, numbness/tingling, or balance problems Psychiatric: No anxiety or depression Skin: No rash or itch Physical Exam Physical Exam: PHYSICAL EXAM: General: awake, easily fatiguable, drifts off to sleep during interview, Head:scar from previous crainiotomy, atraumatic ENT: PERRLA, EOMI, no pharyngeal exudate, mucous membranes dry Neuro: AAO x 3, speech clear and appropriate, strength intact bilaterally 5/5, sensation intact and equal all extremities and dermatomes, no pronator drift Chest: equal rise and fall of the chest, no accessory muscle use, no heaves or thrills, Clear to auscultation, on room air, Cardiac: Regular rate and rhythm, telemetry reviewed- NSR with PVC, skin warm dry, cap refill <3 seconds, peripheral pulses +2 no JVD, no murmur, no edema GI: NABS x 4 quadrants, soft, nontender to palpation, no rebound, guarding or tenderness : Spontaneously voiding, no pain, no CVA tenderness, Psych: Normal mood and affect Results & Data Results & Data ([facility]) Vital Signs (Past 12 Hours) Vital Signs Temp Pulse Pulse Resp BP BP Pulse Ox 02/10/22 18:00 100 H 18 02/10/22 18:00 157/105 H 02/10/22 17:01 178/104 H 02/10/22 17:01 101 H 20 02/10/22 17:02 101 H 18 178/104 H 02/10/22 15:34 113 H 15 160/109 H 93 02/10/22 13:59 36.5 C 119 H 32 H 151/83 H 92 O2 Del Method 02/10/22 18:00 02/10/22 18:00 02/10/22 17:01 02/10/22 17:01 02/10/22 17:02 Room Air 02/10/22 15:34 Room Air 02/10/22 13:59 Room Air Laboratory Results Abnormal lab results 02/10/22 02/10/22 02/10/22 Range/Units 15:00 15:00 15:53 MPV 9.2 L (9.4-12.4) fL Lymph # (Auto) 0.28 L (1.2-3.4) K/uL Immature Gran # (Auto) 0.03 H (0.00-0.02) K/uL VBG pH 7.45 H (7.36-7.41) Sodium 132 L (136-145) mmol/L Chloride 93 L (98-107) mmol/L BUN 27 H (6-23) mg/dl BUN/Creatinine Ratio 27.8 H (10-20) Glucose 161 H (70-99(Fasting)) mg/dl AST 87 H (13-39) U/L ALT 225 H (7-52) U/L Diagnostic Findings Chest X-Ray 02/10/22 14:06 XR chest 1V portable CLINICAL HISTORY: weakness COMPARISON STUDY: Chest radiograph November 20, 2021. FINDINGS: Lung volumes are diminished. This is unchanged. No pneumothorax or pleural effusion is noted. Cardiomediastinal silhouette is stable. No evidence for pulmonary edema. No consolidation to suggest pneumonia. Appearance of the chest is unchanged. IMPRESSION: No acute cardiopulmonary findings. No change in appearance of the chest. ACT 112: Negative or not required by law. Electronically signed by: Evangelista Miranda M.D. 02/10/2022 3:[address] 02/10/22 14:14 CT head/brain wo con CLINICAL HISTORY: ams, brain cancer Technique: Contiguous axial CT images of the head were acquired from the base of the skull to the vertex without intravenous contrast administration. Images were viewed in brain, subdural and bone windows. Automated dose lowering techniques and/or adjustment according to patient size were utilized for this exam. Comparison: None available at the time of this dictation low-resolution CT head 12/15/2021. Findings: Chronic appearing encephalomalacia in the right temporal lobe is seen. Postsurgical changes are seen in the right calvarium. A large arachnoid cyst on the left is unchanged. Imaged portions of the paranasal sinuses and mastoid air cells are clear. The orbits appear normal. Impression: Encephalomalacia and postsurgical changes are seen in the right brain, unchanged. No acute abnormalities are seen. ACT 112: Negative or not required by law. Electronically signed by: Jose Meneses M.D. 02/10/2022 3:09 PM Medications Administered Home Medications chlorthalidone 25 mg tablet 12.5 mg PO Q48H 11/09/21 [History Confirmed 02/08/22] cholecalciferol (vitamin D3) 50 mcg (2,000 unit) capsule (Vitamin D3) 50 mcg PO QAM 11/09/21 [History Confirmed 02/08/22] irbesartan 300 mg tablet 300 mg PO HS 11/09/21 [History Confirmed 02/08/22] metformin 500 mg tablet,extended release 24 hr 500 mg PO QDD 11/09/21 [History Confirmed 02/08/22] multivitamin 1 tab PO DAILY 11/09/21 [History Confirmed 02/08/22] albuterol sulfate 90 mcg/actuation aerosol inhaler 2 puff inhalation QID PRN Wheezing 11/20/21 [History Confirmed 02/08/22] aspirin 81 mg tablet,delayed release 81 mg PO QAM 11/20/21 [History Confirmed 02/08/22] calcium carbonate 200 mg calcium (500 mg) chewable tablet (Tums) 200 mg PO UD PRN Acid Reflux 11/20/21 [History Confirmed 02/08/22] glucosamine sulf dipot chlr,msm,chond 550 mg-C 30 mg-bart 1 mg capsule (Glucosamine Chondroitin) 1 cap PO DAILY 11/20/21 [History Confirmed 02/08/22] melatonin 5 mg tablet 5 mg PO HS PRN Insomnia 11/20/21 [History Confirmed 02/08/22] sildenafil 100 mg tablet 100 mg PO DAILY PRN Erectile Dysfunction 11/20/21 [History Confirmed 02/08/22] docusate sodium 100 mg capsule (Colace) 100 mg PO BID 12/09/21 [History Confirmed 02/08/22] ondansetron HCl 4 mg tablet 4 mg PO Q8H PRN nausea and vomiting 12/09/21 [History Confirmed 02/08/22] temozolomide 140 mg capsule 140 mg PO DAILY 01/11/22 [History Confirmed 02/08/22] temozolomide 20 mg capsule 20 mg PO 01/11/22 [History Confirmed 02/08/22] naproxen sodium 220 mg capsule (Aleve) 440 mg PO BID PRN 01/19/22 [History Confirmed 02/08/22] ECG Additional Comments: Vent. Rate : 113 BPM Atrial Rate : 113 BPM P-R Int : 194 ms QRS Dur : 104 ms QT Int : 416 ms P-R-T Axes : 076 -33 000 degrees QTc Int : 570 ms Sinus tachycardia with occasional Premature ventricular complexes Left axis deviation Poor R wave progression, consider anterior OH vs. lead placement vs. LVH Abnormal ECG When compared with ECG of 20-NOV-2021 12:44, Premature ventricular complexes are now Present Code Status & VTE Plan Code Status CODE: FULL VTE: SCDS, Heparin 5000 units subq q q12 VTE Prophylaxis Plan VTE Prophylaxis will be ordered: Yes Supervising Physician Co-Signing Physician Notes I personally saw and examined the patient. I verified all mcfarlane points and agree with GILDARDO Jett with the following exceptions and/or additions: 76 year old male admission for 2 weeks of generalized weakness progressively getting worse. Undergoing brain radiation and oral chemotherapy for GBM. O/E Alert and orientated but appears easily distracted, HS1+2, RRR, no murmurs, Chest CTAB, Abdo RLQ/suprapubic pain without guarding or rebound tenderness, BS normal. A/P Generalized weakness - unclear definitive etiology but suspect most likely related to chemoradiation. PT/OT evals - most likely will need rehab on discharge. RLQ/suprapubic pain - CT A/P with IV contrast pending Elevated transaminases - ?secondary to temozolomide, given RLQ pain above will get CT A/P regardless to have a look anatomically at his liver but if anatomically normal suspect it is due to his chemotherapy given known side effect. GBM - continue on his usual chemotherapy. Constult radiation oncology for ongoing treatment. PG Care Time/CCT Total # of Minutes Spent Total Time Spent with Patient: Total time spent is greater than 50% in coordination of care (as documented) at patient's floor/unit and/or counseling patient: Coding Level of Care Code 15642 Initial Inpt Care Lvl 3 Diagnoses Glioblastoma multiforme of brain C71.9 Decreased functional mobility and endurance Z74.09 Asthma J45.909 Diabetes type 2, controlled E11.9 Diabetes mellitus complication status: without complication Diabetes mellitus terminal operations manager insulin use: without long-term use Hypertension I10 Transaminitis R74.01 (1) Diabetes type 2, controlled Diabetes mellitus complication status: without complication Diabetes mellitus long-term insulin use: without long-term use Qualified Code(s): E11.9 - Type 2 diabetes mellitus without complications
[2022-02-10] MEDS ORDERED: DEXTROSE 50% 50 ML SYRINGE IV PRN (21:45)
[2022-02-10] MEDS ORDERED: GLUCOSE 10 TAB/TUBE PO PRN (21:45)
[2022-02-10] MEDS ORDERED: CARBOHYDRATES FOR HYPOGLYCEMIA PO PRN (21:45)
[2022-02-10] MEDS ORDERED: ONDANSETRON INJ 2 MG/ML 2 ML VIAL IV PRN (21:45)
[2022-02-10] MEDS ORDERED: GLUCOSE 40% GEL 15 GM TUBE PO PRN (21:45)
[2022-02-10] MEDS ORDERED: GLUCAGON FOR INJ 1 MG VIAL SQ PRN (21:45)
[2022-02-10] MEDS ORDERED: ACETAMINOPHEN 325 MG TAB PO PRN (21:45)
[2022-02-10] MEDS ORDERED: ALBUTEROL HFA 8 GM INHALER INH PRN (21:45)
[2022-02-10] MEDS ORDERED: MELATONIN 3 MG TAB PO PRN (21:52)
[2022-02-10] MEDS ORDERED: ONDANSETRON 4 MG OD TAB PO PRN (21:53)
[2022-02-10 22:08] LABS: Appearance Urine Clear (Clear); Bacteria Urine Automated Negative (Negative); Bilirubin Urine Negative (Negative); Blood Urine Negative (Negative); Color Urine Yellow; Epithelial Cell Urine Auto >30 /lpf (0-5); Glucose Urine UA Negative (Negative); Ketones Urine 2+ (Negative); Leukocyte Esterase Urine 1+ (Negative); Nitrite Urine Negative (Negative); Protein Urine Trace (Negative); RBC Urine Automated 0-4 /hpf (0-4); Urobilinogen Urine Negative (Negative)
[2022-02-10] MEDS ORDERED: OPTIRAY 300 100mL IV ONE (22:35)
[2022-02-10] MEDS: DOCUSATE SODIUM 100 MG CAP PO SCH (22:44)
[2022-02-10] MEDS: HEPARIN SOD 5,000 UNIT/0.5 ML VIAL SQ SCH (22:44)
[2022-02-10] MEDS: IRBESARTAN 150 MG TAB PO SCH (22:44)
[2022-02-10] MEDS: CHLORTHALIDONE 25 MG TAB PO SCH (22:45)
[2022-02-10 22:46] LABS: Mucus Urine Present (None Prsent)
[2022-02-10 22:47] LABS: Calcium Oxalate Crystals Urine Present (None Prsent)
[2022-02-10] MEDS: INSULIN ASPART PER UNIT SC SCH (23:47)
[2022-02-11 06:27] LABS: Basophils # (auto) 0.04 K/uL (0-0.2); Basophils % (auto) 0.6 %; Eosinophils # (auto) 0.09 K/uL (0-0.50); Eosinophils % (auto) 1.3 %; Hematocrit (blood only) 41.3 % (40.1-51.0); Hemoglobin 14.2 g/dl (14.0-18.0); Immature Granulocytes # (auto) 0.04 K/uL (0.00-0.02); Immature Granulocytes % (auto) 0.6 %; Lymphocytes # (auto) 0.63 K/uL (1.2-3.4); Lymphocytes % (auto) 9.3 %; Mean Corpuscular Hgb Conc 34.4 g/dL (32.0-36.0); Mean Corpuscular Volume 87.3 fL (80.0-100.0); Mean Platelet Volume 9.5 fL (9.4-12.4); Monocytes # (auto) 0.77 K/uL (0.24-0.82); Monocytes % (auto) 11.3 %; Neutrophils # (auto) 5.22 K/uL (1.4-6.5); Neutrophils % (auto) 76.9 %; Platelet Count 185 K/uL (130-400); RDW Standard Deviation 45.1 fL (36.4-46.3); Red Blood Count 4.73 M/uL (4.63-6.08); White Blood Count 6.79 K/ul (4.8-10.8)
[2022-02-11 07:14] LABS: Alanine Aminotransferase 184 U/L (7-52); Alkaline Phosphatase 57 U/L (34-104); Anion Gap 8 (3-11); BUN Creatinine Ratio 32.5 (10-20); Bilirubin,Total 1.1 mg/dl (0.2-1.0); Blood Urea Nitrogen 25 mg/dl (6-23); Calcium 9.1 mg/dl (8.5-10.1); Carbon Dioxide 28 mmol/L (21-32); Chloride 95 mmol/L (98-107); Est GFR (African American) 103.6 ml/min; Est GFR (Non-African American) 89.4 ml/min; Glucose 126 mg/dl (70-99(Fasting)); Magnesium 2.1 mg/dl (1.7-2.4); Sodium 131 mmol/L (136-145); Total Protein 6.3 gm/dl (6.0-8.3)
--- NOTE | 2022-02-11 08:12 | CT Scan Report ---
CT abd pelvis IV con only CLINICAL HISTORY: elevated LFTs, RLQ abdominal pain TECHNIQUE: Helical axial images of the abdomen and pelvis were obtained and displayed. Automated dose lowering techniques and/or adjustment according to patient size were utilized for this exam. This e xam was performed with intravenous contrast. CT DOSE: 1134.68 mGycm COMPARISON: Comparison is made to CT abdomen pelvis 02/10/2022 FINDINGS: Lower chest: Bibasilar atelectasis versus scarring is seen. Mitral annular calcifications are noted. Liver: Multiple hepatic cysts are noted. Gallbladder and biliary tree: No calcified gallstones. Normal caliber wall. No intra- or extrahepatic biliary ductal dilation. Pancreas: Unremarkable, no focal lesions. Spleen: Unremarkable. Adrenals: Unremarkable. Kidneys and ureters: Perinephric stranding is noted bilaterally, unchanged from prior exam. A hypoden sity in the left kidney measuring 20 mm in diameter is noted. A right renal hypodensity measuring 12 mm in diameter is noted. Bladder: Unremarkable. Reproductive organs: Prostatic calcifications are seen which may represent prior hemorrhage or granul omatous disease. Bowel: Diverticulosis is seen without evidence of diverticulitis. The appendix is normal. Lymph nodes Retroperitoneal: Unremarkable. Pelvic: Unremarkable. Mesenteric: Unremarkable. Peritoneum: Normal. Vessels: Atherosclerotic calcifications are seen. Abdominal wall: A fat-containing umbilical hernia is seen. Bones: Degenerative changes in the visualized spine. IMPRESSION: 1. The liver and biliary ducts appear normal. The appendix is normal. 2. Bilateral renal lesions are again seen which whether greater than simple fluid density. These are favored to represent proteinaceous/hemorrhagic cyst, but if not previously characterized, ultrasound is recommended to exclude solid mass. ACT 112: Negative or not required by law. Electronically signed by: Jose Meneses M.D. 02/11/2022 8:09 AM
[2022-02-11] MEDS: ASPIRIN 81 MG ECTAB PO SCH (08:57)
[2022-02-11] MEDS: DOCUSATE SODIUM 100 MG CAP PO SCH ×2 (08:58→21:16)
[2022-02-11] MEDS: INSULIN ASPART PER UNIT SC SCH ×4 (09:04→21:16)
--- NOTE | 2022-02-11 09:39 | Hospitalist Progress Note ---
Date of Service February 11, 2022 Assessment & Plan (1) Glioblastoma multiforme of brain: Plan: Currently undergoing radiaton and chemotherapy [facility] and [facility] onc at [facility] - rad onc consultation placed for therapy evaluation while in house - Temozolomide on hold- son states he finished this 02/09/22- non-formulary - Patient wishes to remain full code but has living will at home (2) Decreased functional mobility and endurance: Plan: likey secondary to above with stress of treatments - he has no focal deficits as he was able to help me slide him up in bed - PT/OT with ability to participate and needed support to maintain physical abilities (3) Asthma: Plan: stable Last spirometry 2007 - continue albuterol (4) Diabetes type 2, controlled: Plan: sliding scale aspart follow may need basal insulin added (5) Hypertension: Plan: Continue with irbesartan or equivalent - irbesartan appears to have been started in November from Losartan - continue chlorthalidone (6) Transaminitis: Plan: Elevated with normal bili and alkp04 was normal in November prior to chemo and radiation - Ammonia 26 -slight improvment maybe chemotherapy associated? - WBC normal - PCT <0.05 Admission and Anticipated Discharge Date Admission Date: February 10, 2022 Subjective pt is accompanied by his friend, he has no new issues, has some slow speech, continuing XRT here and awaiting placement Review of Systems Review of Systems: Mild distress and fatigue no headache, no visual changes slow speech, no swallowing issues no chest pain, pressure or palpitations no shortness of breath, cough or wheezes no abdominal pain, nausea or vomiting, diarrhea or constipation no dysuria, hematuria or frequency no focal joint pain or swelling no back pain, CVA tenderness or radicular pain no bruising, bleeding or rashes no focal signs of weakness or numbness or altered sensation no complaints of anxiety or depression. Physical Exam Physical Exam: The patient appeared well nourished and normally developed. Vital signs as documented. Head exam with shaved head on one side Neck is without JVD, thyromegaly, or carotid bruits. Lungs are clear to auscultation, no focal loss of breath sounds Cardiac exam, Rhythm is regular.. No murmurs, rubs or gallops. Abdominal exam reveals normal bowel sounds, soft non tender, no masses Extremities are nonedematous and both pedal pulses are present Neurologic exam is alert and oriented, some slow movement and seppch Skin is without bruises or rashes Results & Data Results & Data ([facility]) Vital Signs (Past 12 Hours) Vital Signs Pulse Resp BP BP Pulse Ox Pulse Ox O2 Del Method 02/11/22 07:11 83 16 136/70 96 02/11/22 03:20 90 96 02/11/22 03:23 76 18 134/77 94 02/11/22 02:30 95 Room Air 02/11/22 01:00 20 160/92 H 92 02/11/22 00:00 18 169/89 H 92 02/11/22 00:00 92 02/10/22 22:50 87 16 150/94 H 94 Room Air O2 Del Method O2 Flow Rate 02/11/22 07:11 02/11/22 03:20 02/11/22 03:23 02/11/22 02:30 0 02/11/22 01:00 02/11/22 00:00 02/11/22 00:00 Room Air 02/10/22 22:50 PG Care Time/CCT Total # of Minutes Spent Total Time Spent with Patient: Total time spent is greater than 50% in coordination of care (as documented) at patient's floor/unit and/or counseling patient: Coding Level of Care Code 93494 Subseq Hosp Care Lvl 2 Diagnoses Glioblastoma multiforme of brain C71.9 Decreased functional mobility and endurance Z74.09 Asthma J45.909 Diabetes type 2, controlled E11.9 Diabetes mellitus complication status: without complication Diabetes mellitus long term care social worker insulin use: without long term care social worker use Hypertension I10 Transaminitis R74.01 (1) Diabetes type 2, controlled Diabetes mellitus complication status: without complication Diabetes mellitus retirement insulin use: without retirement use Qualified Code(s): E11.9 - Type 2 diabetes mellitus without complications
--- NOTE | 2022-02-11 09:40 | Radiation OncologyConsultation ---
Date of Consultation February 11, 2022 Assessment & Plan (1) Glioblastoma multiforme of brain: This is a 76-year-old gentleman who is postop from glioblastoma multiforme. He has been followed by our office and has been undergoing radiation therapy. He also receives Temodar. He is followed by neuro oncology at [place]. Dr. Lakhani. He has completed his Temodar therapy currently. He had received 29 of 30 fractions of radiation therapy. He has had issues with lethargy and generalized muscle weakness. For this reason he presented to the emergency room yesterday. Today he is improved. He is awake and oriented. He would like to complete his radiation therapy. Arrangements will be made for him to be brought to radiation therapy for his final treatment today. He is feeling stronger and was requesting breakfast this morning. This information was relayed to nursing. After completion of the radiation he will return to our office in 3 and half months. He will continue follow-up with neuro oncology and has a follow-up date for visit and MRI. We are in agreement that he should go to a rehabilitation facility. Supervising Physician Co-Signing Physician Notes I have reviewed all the clinical information with the mid-level provider regarding this patient and agree with the plan to continue forward to finish the patient's last treatment. History of Present Illness Reason for Consultation: Patient currently on radiation therapy. He was to receive his last treatment yesterday. Evaluation to complete the radiation therapy Attending Physician: Soren Sharma MD History of Present Illness 11/09/2021. Patient presents with fall and balance instability. Admitted to [facility] and then transferred to [facility]. 11/10/2021. MRI brain. Right temporal lobe hemorrhagic and part necrotic mass wit h extensions, perilesional edema, mass-effect, right to left midline shift by 9 mm and herniation as described above. This most likely represents a primary high-grade glial neoplasm. Differential diagnosis is metastatic disease. Small acute infarct anterior right cingulate gyrus. 11/10/2021. CT of abdomen/pelvis. Impression: No definite primary malignancy identified. Multiple cysts and probable cyst in this liver. Small hypodense lesion in the left kidney, technically indeterminate but likely represents a hyperdense cyst. 11/13/2021. Right-sided temporal craniotomy for a right sided temporal partial lobectomy and resection of brain tumor by Dr. Arreguin. Subtotal resection. Glioblastoma, WHO grade 4. IDH1 wild- type. 11/14/2021. MRI brain. Since 11/10/2021, maximum safe resection of necrotic mass centered in the right temporal lobe with anticipated postoperative changes as described above. Residual enhancement centered in the right medial temporal lobe and hippocampal formation intrinsic T1 hyperintense foci along the margin of the surgical cavity as described. 11/19/2021. Neuro oncology consultation with Dr. Lakhani. Options included clinical trial or standard concurrent chemotherapy and radiation therapy. . Initiation of combined radiation and chemotherapy. Chemotherapy comprised of Temodar. Patient was having issues with generalized weakness. Difficulty with ambulati on. He had had a few falls at home. There were no acute injuries. He has ongoing pain of his right knee. He uses Salonpas for the discomfort. Patient navigation was also involved in his care. He has had difficulty with getting around his home. We did obtain a hospital bed for him. He also obtained a wheelchair. He was receiving home health and recommendation had been given for him to have physical therapy at home. This had been taking place. He unfortunately came steadily more fatigued and debilitated. 02/10/2022. Patient presented to radiation therapy for his final treatment. He was listless and difficult to awake. He had generalized weakness. He denied headache. He was not having any nausea or vomiting. There was no signs of Paralysis. He had been becoming more debilitated at home. He was not eating or drinking. He was sent to the emergency room for evaluation and was admitted. Allergies Allergy/AdvReac Type Severity Reaction Status Date / Time No Known Allergies Allergy Verified 02/08/22 15:08 Home Medications Medication Instructions Recorded Confirmed Type chlorthalidone 25 mg tablet 12.5 mg PO Q48H 11/09/21 02/08/22 History cholecalciferol (vitamin D3) 50 50 mcg PO QAM 11/09/21 02/08/22 History mcg (2,000 unit) capsule (Vitamin D3) irbesartan 300 mg tablet 300 mg PO HS 11/09/21 02/08/22 History metformin 500 mg tablet,extended 500 mg PO QDD 11/09/21 02/08/22 History release 24 hr multivitamin 1 tab PO DAILY 11/09/21 02/08/22 History albuterol sulfate 90 mcg/actuation 2 puff inhalation QID PRN Wheezing 11/20/21 02/08/22 History aerosol inhaler aspirin 81 mg tablet,delayed 81 mg PO QAM 11/20/21 02/08/22 History release calcium carbonate 200 mg calcium 200 mg PO UD PRN Acid Reflux 11/20/21 02/08/22 History (500 mg) chewable tablet (Tums) glucosamine sulf dipot 1 cap PO DAILY 11/20/21 02/08/22 History chlr,msm,chond 550 mg-C 30 mg-bart 1 mg capsule (Glucosamine Chondroitin) melatonin 5 mg tablet 5 mg PO HS PRN Insomnia 11/20/21 02/08/22 History sildenafil 100 mg tablet 100 mg PO DAILY PRN Erectile 11/20/21 02/08/22 History Dysfunction docusate sodium 100 mg capsule 100 mg PO BID 12/09/21 02/08/22 History (Colace) ondansetron HCl 4 mg tablet 4 mg PO Q8H PRN nausea and vomiting 12/09/21 02/08/22 History temozolomide 140 mg capsule 140 mg PO DAILY 01/11/22 02/08/22 History temozolomide 20 mg capsule 20 mg PO 01/11/22 02/08/22 History naproxen sodium 220 mg capsule 440 mg PO BID PRN 01/19/22 02/08/22 History (Aleve) Patient History Medical History (Updated 02/10/22 @ 20:54 by Gregory Ybarra M.D.) Asthma Diabetes type 2, controlled Glioblastoma multiforme of brain Hypertension Knee pain Obesity Surgical History History of cardiac catheterization (2012) History of colonoscopy (01/17/08) History of colonoscopy (06/03/21) History of craniotomy (11/13/21) Right-sided Temporal Craniotomy for a Right-sided Temporal Partial Lobectomy and Resection of Brain Tumor Dr. Jakub Arreguin at [facility] History of inguinal hernia repair Left History of prostate biopsy History of prostatectomy [facility] Dr. Merino History of tonsillectomy and adenoidectomy History of ureteroscopy stent and nephrostomy placement and reversal Social History Smoking Status: Former smoker Tobacco Type: Cigarettes Number of Years Since Quit: 30; Second Hand Exposure: No; Hx Alcohol Use: Yes Alcohol type: beer Hx Substance Use: No Preferred Language: Greek Communication Ability: Impaired Visual Impairment: Limited Hearing Ability: Normal Dental Assistant Teacher Required: No Beliefs That Will Affect Care: None Current Living Situation: Family Current Living Situation Comment: son Feels Safe at Home: Yes Childhood Exposure to Second-Hand Smoke: No caffeine: Yes (minimal intake) during the past year weight has: remained stable Dental Care, Regularly: Yes Assistive Devices: Walker and Wheelchair Review of Systems Review of Systems: 13 point review of system completed. This was negative oth er than what is mentioned in the history of present illness. Physical Exam Physical Exam: Patient is lying in bed. He is awake and oriented. Constitutional: + lethargic Eyes: PERRL, conjunctivae normal, anicteric sclerae ENMT: Ears: no hearing impairment Neck: trachea midline, no thyromegaly Respiratory: normal respiratory effort, lungs clear to auscultation Cardiovascular: RRR, no murmur, no edema Gastrointestinal (Abdomen): normal bowel sounds, soft, nontender, no hepatosplenomegaly Musculoskeletal: no cyanosis or clubbing, extremities motor strength 5/5 Neurologic: PERRL, EOMI, accommodation nl, no face palsy, no dysarthria Speech / Cognition: + abnormal speech (Speech is slow but appropriate with no confusion); no expressive aphasia Psychiatric: Orientation: oriented x 3 Results (Rad Onc) Laboratory studies have shown elevated transaminase with improvement. [facility], [phone] CT Scan Report Patient: CHOLO VALENTE Katy Date: 02/10/22#: [id number]: [address]Ac[address] ID:[id number]: Date: 1945[facility] Zip: [place], [place] [address]Kxc: 76Location: EDSex: MRoom/Bed:Att Phy:Diagnosis: LETHARGIC, BRAIN Alyssa Phy: Harsha Nava M.D.Service Date: 02/10/22[facility] Phy:Interpreting Phy: Jose Meneses [facility] Phy: Ordering Phy: Gregory Ybarra M.D. cc: ~ CT head/brain wo con CLINICAL HISTORY: ams, brain cancer Technique: Contiguous axial CT images of the head were acquired from the base of the skull to the vertex without intravenous contrast administration. Images were viewed in brain, subdural and bone windows. Automated dose lowering techniques and/or adjustment according to patient size were utilized for this exam. Comparison: None available at the time of this dictation low-resolution CT head 12/15/2021. Findings: Chronic appearing encephalomalacia in the right temporal lobe is seen. Postsurgical changes are seen in the right calvarium. A large arachnoid cyst on the left is unchanged. Imaged portions of the paranasal sinuses and mastoid air cells are clear. The orbits appear normal. Impression: Encephalomalacia and postsurgical changes are seen in the right brain, unchanged. No acute abnormalities are seen. ACT 112: Negative or not required by law. Electronically signed by: Jose Meneses M.D. 02/10/2022 3:09 PM Dictated: 02/10/22 1505Transcribed: 02/10/22 1505 Time Spent Midlevel I spent [10] minutes in preparation for this follow up evaluation including reviewing all the clinical records, reviewing laboratory studies, pathology reports and imaging results. I spent [15] minutes with direct face to face interaction with the patient and/or family including performing a physical exam and answering all questions. I spent [10] minutes documenting this patient's visit.
[2022-02-11] MEDS: HEPARIN SOD 5,000 UNIT/0.5 ML VIAL SQ SCH ×2 (09:42→21:16)
[2022-02-11 09:46] LABS: Potassium 3.8 mmol/L (3.5-5.1)
[2022-02-11 09:57] LABS: Bilirubin Direct 0.3 mg/dl (0-0.2)
[2022-02-11] MEDS: IRBESARTAN 150 MG TAB PO SCH (21:16)
[2022-02-12 07:33] LABS: Basophils # (auto) 0.04 K/uL (0-0.2); Basophils % (auto) 0.9 %; Eosinophils # (auto) 0.23 K/uL (0-0.50); Eosinophils % (auto) 5.1 %; Hematocrit (blood only) 42.6 % (40.1-51.0); Hemoglobin 14.6 g/dl (14.0-18.0); Immature Granulocytes # (auto) 0.01 K/uL (0.00-0.02); Immature Granulocytes % (auto) 0.2 %; Lymphocytes # (auto) 0.55 K/uL (1.2-3.4); Lymphocytes % (auto) 12.3 %; Mean Corpuscular Hemoglobin 30.2 pg (25.0-34.0); Mean Corpuscular Hgb Conc 34.3 g/dL (32.0-36.0); Mean Corpuscular Volume 88.2 fL (80.0-100.0); Mean Platelet Volume 9.3 fL (9.4-12.4); Monocytes # (auto) 0.57 K/uL (0.24-0.82); Monocytes % (auto) 12.7 %; Neutrophils # (auto) 3.08 K/uL (1.4-6.5); Neutrophils % (auto) 68.8 %; Platelet Count 154 K/uL (130-400); RDW Coefficient of Variation 13.9 % (11.5-14.5); RDW Standard Deviation 44.8 fL (36.4-46.3); Red Blood Count 4.83 M/uL (4.63-6.08); White Blood Count 4.48 K/ul (4.8-10.8)
--- NOTE | 2022-02-12 07:42 | Hospitalist Progress Note ---
Date of Service February 12, 2022 Assessment & Plan (1) Glioblastoma multiforme of brain: Plan: Currently undergoing radiaton and chemotherapy follows with [facility] and rad onc at [facility] - rad onc consultation completed treatment in house - Temozolomide on hold- son states he finished this 02/09/22- non-formulary - Patient wishes to remain full code but has living will at home (2) Decreased functional mobility and endurance: Plan: likey secondary to above with stress of treatments - he has no focal deficits as he was able to help me slide him up in bed - PT/OT with ability to participate and needed support to maintain physical abilities (3) Asthma: Plan: stable Last spirometry 2007 - continue albuterol (4) Diabetes type 2, controlled: Plan: sliding scale aspart (5) Hypertension: Plan: Continue with irbesartan or equivalent - irbesartan appears to have been started in November from Losartan - continue chlorthalidone (6) Transaminitis: Plan: Elevated with normal bili and alkp04 was normal in November prior to chemo and radiation - Ammonia -continue to trend toward normal maybe chemotherapy associated? Admission and Anticipated Discharge Date Admission Date: February 10, 2022 Subjective pt is without no new issues, has some slow speech, completed XRT case management is assisting in locating snf for subacute rehab and awaiting placement Review of Systems Review of Systems: Mild distress and fatigue no headache, no visual changes slow speech, no swallowing issues no chest pain, pressure or palpitations no shortness of breath, cough or wheezes no abdominal pain, nausea or vomiting, diarrhea or constipation no dysuria, hematuria or frequency no focal joint pain or swelling no back pain, CVA tenderness or radicular pain no bruising, bleeding or rashes no focal signs of weakness or numbness or altered sensation no complaints of anxiety or depression. Physical Exam Physical Exam: The patient appeared well nourished and normally developed. Vital signs as documented. Head exam with shaved head on one side Neck is without JVD, thyromegaly, or carotid bruits. Lungs are clear to auscultation, no focal loss of breath sounds Cardiac exam, Rhythm is regular.. No murmurs, rubs or gallops. Abdominal exam reveals normal bowel sounds, soft non tender, no masses Extremities are nonedematous and both pedal pulses are present Neurologic exam is alert and oriented, some slow movement and seppch Skin is without bruises or rashes Results & Data Results & Data ([facility]) Vital Signs (Past 12 Hours) Vital Signs Temp Pulse Resp BP Pulse Ox O2 Del Method 02/11/22 23:47 98.8 F 87 20 123/76 94 Room Air 02/11/22 21:24 133/81 PG Care Time/CCT Total # of Minutes Spent Total Time Spent with Patient: Total time spent is greater than 50% in coordination of care (as documented) at patient's floor/unit and/or counseling patient: Coding Level of Care Code 72578 Subseq Hosp Care Lvl 2 Diagnoses Glioblastoma multiforme of brain C71.9 Decreased functional mobility and endurance Z74.09 Asthma J45.909 Diabetes type 2, controlled E11.9 Diabetes mellitus complication status: without complication Diabetes mellitus buttermilk drier operator insulin use: without buttermilk drier operator use Hypertension I10 Transaminitis R74.01 (1) Diabetes type 2, controlled Diabetes mellitus complication status: without complication Diabetes mellitus buttermilk drier operator insulin use: without buttermilk drier operator use Qualified Code(s): E11.9 - Type 2 diabetes mellitus without complications
[2022-02-12 08:00] LABS: Albumin Level 4.1 gm/dl (3.4-5.0); Bilirubin Direct 0.2 mg/dl (0-0.2); Calcium 9.2 mg/dl (8.5-10.1); Creatinine Clr Calc Pharmacy 97.7 ml/min; Est GFR (African American) 105.3 ml/min; Est GFR (Non-African American) 90.9 ml/min; Magnesium 1.9 mg/dl (1.7-2.4); Potassium 3.3 mmol/L (3.5-5.1); Total Protein 6.3 gm/dl (6.0-8.3)
[2022-02-12] MEDS: INSULIN ASPART PER UNIT SC SCH ×4 (08:12→21:23)
[2022-02-12] MEDS: DOCUSATE SODIUM 100 MG CAP PO SCH ×2 (08:29→21:43)
[2022-02-12] MEDS: HEPARIN SOD 5,000 UNIT/0.5 ML VIAL SQ SCH ×2 (08:29→21:34)
[2022-02-12] MEDS: ASPIRIN 81 MG ECTAB PO SCH (08:29)
[2022-02-12] MEDS: CHLORTHALIDONE 25 MG TAB PO SCH (21:32)
[2022-02-12] MEDS: IRBESARTAN 150 MG TAB PO SCH (21:33)
[2022-02-13 06:59] LABS: Basophils # (auto) 0.04 K/uL (0-0.2); Basophils % (auto) 0.9 %; Eosinophils # (auto) 0.28 K/uL (0-0.50); Eosinophils % (auto) 6.4 %; Hemoglobin 14.7 g/dl (14.0-18.0); Immature Granulocytes # (auto) 0.02 K/uL (0.00-0.02); Immature Granulocytes % (auto) 0.5 %; Lymphocytes # (auto) 0.52 K/uL (1.2-3.4); Lymphocytes % (auto) 11.9 %; Mean Corpuscular Hemoglobin 29.9 pg (25.0-34.0); Mean Corpuscular Hgb Conc 34.2 g/dL (32.0-36.0); Mean Corpuscular Volume 87.6 fL (80.0-100.0); Mean Platelet Volume 9.1 fL (9.4-12.4); Monocytes # (auto) 0.64 K/uL (0.24-0.82); Monocytes % (auto) 14.7 %; Neutrophils # (auto) 2.86 K/uL (1.4-6.5); Neutrophils % (auto) 65.6 %; Platelet Count 180 K/uL (130-400); RDW Coefficient of Variation 14.1 % (11.5-14.5); RDW Standard Deviation 44.8 fL (36.4-46.3); Red Blood Count 4.91 M/uL (4.63-6.08); White Blood Count 4.36 K/ul (4.8-10.8)
[2022-02-13 07:22] LABS: BUN Creatinine Ratio 21.8 (10-20); Calcium 9.2 mg/dl (8.5-10.1); Creatinine Clr Calc Pharmacy 92.7 ml/min; Est GFR (African American) 103.1 ml/min; Est GFR (Non-African American) 88.9 ml/min; Potassium 3.5 mmol/L (3.5-5.1)
[2022-02-13] MEDS: INSULIN ASPART PER UNIT SC SCH ×4 (08:52→21:23)
[2022-02-13] MEDS: ASPIRIN 81 MG ECTAB PO SCH (09:00)
[2022-02-13] MEDS: HEPARIN SOD 5,000 UNIT/0.5 ML VIAL SQ SCH ×2 (09:00→21:35)
[2022-02-13] MEDS: CHLORTHALIDONE 25 MG TAB PO SCH (09:05)
[2022-02-13] MEDS: DOCUSATE SODIUM 100 MG CAP PO SCH ×2 (09:05→21:35)
--- NOTE | 2022-02-13 16:54 | Hospitalist Progress Note ---
Date of Service February 13, 2022 Assessment & Plan (1) Glioblastoma multiforme of brain: Plan: Currently undergoing radiaton and chemotherapy follows with [facility] and rad onc at [facility] - rad onc consultation completed treatment in house - Temozolomide on hold- son states he finished this 02/09/22- non-formulary - Patient wishes to remain full code but has living will at home -will start some low dose lexapro (2) Decreased functional mobility and endurance: Plan: likey secondary to above with stress of treatments - he has no focal deficits as he was able to help me slide him up in bed - PT/OT with ability to participate and needed support to maintain physical abilities (3) Asthma: Plan: stable Last spirometry 2007 - continue albuterol (4) Diabetes type 2, controlled: Plan: sliding scale aspart (5) Hypertension: Plan: Continue with irbesartan or equivalent - irbesartan appears to have been started in November from Losartan - continue chlorthalidone (6) Transaminitis: Plan: Elevated with normal bili and alkp04 was normal in November prior to chemo and radiation - Ammonia 26 -continue to trend toward normal maybe chemotherapy associated? Admission and Anticipated Discharge Date Admission Date: February 10, 2022 Subjective pt is without no new issues, has some slow speech, completed XRT case management is assisting in locating snf for subacute rehab and awaiting placement pt asked about depression, did not give direct answer but asked if he opposed antidepressant and he did not Review of Systems Review of Systems: Mild distress and fatigue no headache, no visual changes slow speech, no swallowing issues no chest pain, pressure or palpitations no shortness of breath, cough or wheezes no abdominal pain, nausea or vomiting, diarrhea or constipation no dysuria, hematuria or frequency no focal joint pain or swelling no back pain, CVA tenderness or radicular pain no bruising, bleeding or rashes no focal signs of weakness or numbness or altered sensation no complaints of anxiety or depression. Physical Exam Physical Exam: The patient appeared well nourished and normally developed. Vital signs as documented. Head exam with shaved head on one side Neck is without JVD, thyromegaly, or carotid bruits. Lungs are clear to auscultation, no focal loss of breath sounds Cardiac exam, Rhythm is regular.. No murmurs, rubs or gallops. Abdominal exam reveals normal bowel sounds, soft non tender, no masses Extremities are nonedematous and both pedal pulses are present Neurologic exam is alert and oriented, some slow movement and seppch Skin is without bruises or rashes Results & Data Results & Data ([facility]) Vital Signs (Past 12 Hours) Vital Signs Temp Pulse Resp BP Pulse Ox O2 Del Method 02/13/22 15:40 98.4 F 97 H 19 126/79 96 Room Air 02/13/22 07:24 98.2 F 82 20 148/91 H 95 Room Air PG Care Time/CCT Total # of Minutes Spent Total Time Spent with Patient: Total time spent is greater than 50% in coordination of care (as documented) at patient's floor/unit and/or counseling patient: Coding Level of Care Code 55501 Subseq Hosp Care Lvl 2 Diagnoses Glioblastoma multiforme of brain C71.9 Decreased functional mobility and endurance Z74.09 Asthma J45.909 Diabetes type 2, controlled E11.9 Diabetes mellitus complication status: without complication Diabetes mellitus intermodal customer service insulin use: without intermodal customer service use Hypertension I10 Transaminitis R74.01 (1) Diabetes type 2, controlled Diabetes mellitus complication status: without complication Diabetes mellitus skilled nursing insulin use: without skilled nursing use Qualified Code(s): E11.9 - Type 2 diabetes mellitus without complications
[2022-02-13] MEDS ORDERED: ESCITALOPRAM OXALATE 10 MG TAB PO SCH (21:00)
[2022-02-13] MEDS: IRBESARTAN 150 MG TAB PO SCH (21:35)
[2022-02-14] MEDS: CHLORTHALIDONE 25 MG TAB PO SCH (07:27)
[2022-02-14] MEDS: ASPIRIN 81 MG ECTAB PO SCH (07:27)
[2022-02-14] MEDS: DOCUSATE SODIUM 100 MG CAP PO SCH ×2 (07:27→19:49)
[2022-02-14] MEDS: HEPARIN SOD 5,000 UNIT/0.5 ML VIAL SQ SCH ×2 (07:31→19:46)
[2022-02-14] MEDS: INSULIN ASPART PER UNIT SC SCH ×4 (07:33→19:49)
--- NOTE | 2022-02-14 18:42 | Hospitalist Progress Note ---
Date of Service February 14, 2022 Assessment & Plan (1) Glioblastoma multiforme of brain: Plan: Currently undergoing radiaton and chemotherapy follows with [facility] and rad onc at [facility] - rad onc consultation completed treatment in house - Temozolomide on hold- son states he finished this 02/09/22- non-formulary - Patient wishes to remain full code but has living will at home -lexapro start was questioned by ana as has Qt prolongation, many antidepressants do cause this too. will check ecg in am and if improved consider to start (2) Decreased functional mobility and endurance: Plan: likey secondary to above with stress of treatments - he has no focal deficits as he was able to help me slide him up in bed - PT/OT with ability to participate and needed support to maintain physical abilities (3) Asthma: Plan: stable Last spirometry 2007 - continue albuterol (4) Diabetes type 2, controlled: Plan: sliding scale aspart (5) Hypertension: Plan: Continue with irbesartan or equivalent - irbesartan appears to have been started in November from Losartan - continue chlorthalidone (6) Transaminitis: Plan: Elevated with normal bili and alkp04 was normal in November prior to chemo and radiation - Ammonia 26 -continue to trend toward normal maybe chemotherapy associated? Admission and Anticipated Discharge Date Admission Date: February 10, 2022 Subjective pt is without no new issues, has some slow speech, completed XRT case management is assisting in locating snf for subacute rehab and awaiting placement pt asked about depression, did not give direct answer but asked if he opposed antidepressant and he did not Review of Systems Review of Systems: Mild distress and fatigue no headache, no visual changes slow speech, no swallowing issues no chest pain, pressure or palpitations no shortness of breath, cough or wheezes no abdominal pain, nausea or vomiting, diarrhea or constipation no dysuria, hematuria or frequency no focal joint pain or swelling no back pain, CVA tenderness or radicular pain no bruising, bleeding or rashes no focal signs of weakness or numbness or altered sensation no complaints of anxiety or depression. Physical Exam Physical Exam: The patient appeared well nourished and normally developed. Vital signs as documented. Head exam with shaved head on one side Neck is without JVD, thyromegaly, or carotid bruits. Lungs are clear to auscultation, no focal loss of breath sounds Cardiac exam, Rhythm is regular.. No murmurs, rubs or gallops. Abdominal exam reveals normal bowel sounds, soft non tender, no masses Extremities are nonedematous and both pedal pulses are present Neurologic exam is alert and oriented, some slow movement and seppch Skin is without bruises or rashes Results & Data Results & Data ([facility]) Vital Signs (Past 12 Hours) Vital Signs Temp Pulse Resp BP Pulse Ox O2 Del Method 02/14/22 15:26 99.0 F 88 17 120/81 95 Room Air 02/14/22 08:13 97.5 F L 89 16 154/89 H 96 Room Air PG Care Time/CCT Total # of Minutes Spent Total Time Spent with Patient: Total time spent is greater than 50% in coordination of care (as documented) at patient's floor/unit and/or counseling patient: Coding Level of Care Code 22815 Subseq Hosp Care Lvl 2 Diagnoses Glioblastoma multiforme of brain C71.9 Decreased functional mobility and endurance Z74.09 Asthma J45.909 Diabetes type 2, controlled E11.9 Diabetes mellitus complication status: without complication Diabetes mellitus rand tacker insulin use: without group home use Hypertension I10 Transaminitis R74.01 (1) Diabetes type 2, controlled Diabetes mellitus complication status: without complication Diabetes mellitus rand tacker insulin use: without group home use Qualified Code(s): E11.9 - Type 2 diabetes mellitus without complications
[2022-02-14] MEDS: IRBESARTAN 150 MG TAB PO SCH (19:46)
[2022-02-15] MEDS: CHLORTHALIDONE 25 MG TAB PO SCH (07:45)
[2022-02-15] MEDS: ASPIRIN 81 MG ECTAB PO SCH (07:45)
[2022-02-15] MEDS: HEPARIN SOD 5,000 UNIT/0.5 ML VIAL SQ SCH ×2 (07:47→20:46)
[2022-02-15] MEDS: INSULIN ASPART PER UNIT SC SCH ×4 (07:47→20:46)
[2022-02-15] MEDS: DOCUSATE SODIUM 100 MG CAP PO SCH ×2 (07:48→20:47)
--- NOTE | 2022-02-15 16:06 | Electrocardiogram Report ---
Test Reason : Blood Pressure : / mmHG Vent. Rate : 087 BPM Atrial Rate : 087 BPM P-R Int : 216 ms QRS Dur : 106 ms QT Int : 384 ms P-R-T Axes : 067 -29 011 degrees QTc Int : 462 ms Sinus rhythm with 1st degree A-V block Inferior infarct (cited on or before 15-FEB-2022) Poor R wave progression, consider anterior [place] vs. lead placement vs. LVH Abnormal ECG When compared with ECG of 10-FEB-2022 15:18, Premature ventricular complexes are no longer Present Confirmed by Ruben Li ([id number]) on 02/15/2022 4:05:56 PM Referred By: REFERRED SELF Confirmed By:Ruben Li
--- NOTE | 2022-02-15 18:29 | Hospitalist Progress Note ---
Date of Service February 15, 2022 Assessment & Plan (1) Glioblastoma multiforme of brain: Plan: Currently undergoing radiaton and chemotherapy follows with [facility] and rad onc at [facility] - rad onc consultation completed treatment in house - Temozolomide on hold- son states he finished this 02/09/22- non-formulary - Patient wishes to remain full code but has living will at home -lexapro start 02/15/22 (2) Decreased functional mobility and endurance: Plan: likey secondary to above with stress of treatments - he has no focal deficits as he was able to help me slide him up in bed - PT/OT with ability to participate and needed support to maintain physical abilities (3) Asthma: Plan: stable Last spirometry 2007 - continue albuterol (4) Diabetes type 2, controlled: Plan: sliding scale aspart (5) Hypertension: Plan: Continue with irbesartan or equivalent - irbesartan appears to have been started in November from Losartan - continue chlorthalidone (6) Transaminitis: Plan: Elevated with normal bili and alkp04 was normal in November prior to chemo and radiation - Ammonia 26 -continue to trend toward normal maybe chemotherapy associated? Admission and Anticipated Discharge Date Admission Date: February 10, 2022 Subjective pt is without no new issues, has some slow speech, completed XRT case management is assisting in locating snf for subacute rehab and awaiting placement pt asked about depression, did not give direct answer but asked if he opposed antidepressant and he did not Review of Systems Review of Systems: Mild distress and fatigue no headache, no visual changes slow speech, no swallowing issues no chest pain, pressure or palpitations no shortness of breath, cough or wheezes no abdominal pain, nausea or vomiting, diarrhea or constipation no dysuria, hematuria or frequency no focal joint pain or swelling no back pain, CVA tenderness or radicular pain no bruising, bleeding or rashes no focal signs of weakness or numbness or altered sensation no complaints of anxiety or depression. Physical Exam Physical Exam: The patient appeared well nourished and normally developed. Vital signs as documented. Head exam with shaved head on one side Neck is without JVD, thyromegaly, or carotid bruits. Lungs are clear to auscultation, no focal loss of breath sounds Cardiac exam, Rhythm is regular.. No murmurs, rubs or gallops. Abdominal exam reveals normal bowel sounds, soft non tender, no masses Extremities are nonedematous and both pedal pulses are present Neurologic exam is alert and oriented, some slow movement and seppch Skin is without bruises or rashes Results & Data Results & Data ([facility]) Vital Signs (Past 12 Hours) Vital Signs Temp Pulse Resp BP Pulse Ox O2 Del Method 02/15/22 15:56 98.1 F 93 H 18 123/82 95 Room Air 02/15/22 07:32 98.1 F 85 18 139/84 93 Room Air PG Care Time/CCT Total # of Minutes Spent Total Time Spent with Patient: Total time spent is greater than 50% in coordination of care (as documented) at patient's floor/unit and/or counseling patient: Coding Level of Care Code 58640 Subseq Hosp Care Lvl 2 Diagnoses Glioblastoma multiforme of brain C71.9 Decreased functional mobility and endurance Z74.09 Asthma J45.909 Diabetes type 2, controlled E11.9 Diabetes mellitus complication status: without complication Diabetes mellitus mcc insulin use: without buttermaker helper use Hypertension I10 Transaminitis R74.01 (1) Diabetes type 2, controlled Diabetes mellitus complication status: without complication Diabetes mellitus buttermaker helper insulin use: without buttermaker helper use Qualified Code(s): E11.9 - Type 2 diabetes mellitus without complications
[2022-02-15] MEDS: ESCITALOPRAM OXALATE 10 MG TAB PO SCH (20:47)
[2022-02-15] MEDS: IRBESARTAN 150 MG TAB PO SCH (20:47)
[2022-02-16] MEDS: HEPARIN SOD 5,000 UNIT/0.5 ML VIAL SQ SCH ×2 (07:34→20:38)
[2022-02-16] MEDS: ASPIRIN 81 MG ECTAB PO SCH (07:34)
[2022-02-16] MEDS: CHLORTHALIDONE 25 MG TAB PO SCH (07:34)
[2022-02-16] MEDS: INSULIN ASPART PER UNIT SC SCH ×4 (07:35→20:38)
[2022-02-16] MEDS: DOCUSATE SODIUM 100 MG CAP PO SCH ×2 (07:36→20:38)
--- NOTE | 2022-02-16 17:41 | Hospitalist Progress Note ---
Date of Service February 16, 2022 Assessment & Plan (1) Glioblastoma multiforme of brain: Plan: Currently undergoing radiaton and chemotherapy follows with [facility] and rad onc at [facility] - rad onc consultation completed treatment in house - Temozolomide on hold- son states he finished this 02/09/22- non-formulary - Patient wishes to remain full code but has living will at home -lexapro start 02/15/22 (2) Decreased functional mobility and endurance: Plan: likey secondary to above with stress of treatments - he has no focal deficits as he was able to help me slide him up in bed - PT/OT with ability to participate and needed support to maintain physical abilities (3) Asthma: Plan: stable Last spirometry 2007 - continue albuterol (4) Diabetes type 2, controlled: Plan: sliding scale aspart, restart metformin (5) Hypertension: Plan: Continue with irbesartan or equivalent - irbesartan appears to have been started in November from Losartan - continue chlorthalidone (6) Transaminitis: Plan: Elevated with normal bili and alkp04 was normal in November prior to chemo and radiation - Ammonia 26 -continue to trend toward normal maybe chemotherapy associated? Admission and Anticipated Discharge Date Admission Date: February 10, 2022 Subjective pt is without no new issues, has some slow speech, completed XRT case management is assisting in locating snf for subacute rehab and awaiting placement pt asked about depression, did not give direct answer but asked if he opposed antidepressant this was started 02/15/22 Review of Systems Review of Systems: Mild distress and fatigue no headache, no visual changes slow speech, no swallowing issues no chest pain, pressure or palpitations no shortness of breath, cough or wheezes no abdominal pain, nausea or vomiting, diarrhea or constipation no dysuria, hematuria or frequency no focal joint pain or swelling no back pain, CVA tenderness or radicular pain no bruising, bleeding or rashes no focal signs of weakness or numbness or altered sensation Physical Exam Physical Exam: The patient appeared well nourished and normally developed. Vital signs as documented. Head exam with shaved head on one side Neck is without JVD, thyromegaly, or carotid bruits. Lungs are clear to auscultation, no focal loss of breath sounds Cardiac exam, Rhythm is regular.. No murmurs, rubs or gallops. Abdominal exam reveals normal bowel sounds, soft non tender, no masses Extremities are nonedematous and both pedal pulses are present Neurologic exam is alert and oriented, some slow movement and speech Skin is without bruises or rashes Results & Data Results & Data ([facility]) Vital Signs (Past 12 Hours) Vital Signs Temp Pulse Resp BP Pulse Ox O2 Del Method 02/16/22 15:47 97.7 F 85 18 145/84 H 95 Room Air 02/16/22 07:51 97.5 F L 88 18 160/102 H 96 Room Air PG Care Time/CCT Total # of Minutes Spent Total Time Spent with Patient: Total time spent is greater than 50% in coordination of care (as documented) at patient's floor/unit and/or counseling patient: Coding Level of Care Code 18534 Subseq Hosp Care Lvl 2 Diagnoses Glioblastoma multiforme of brain C71.9 Decreased functional mobility and endurance Z74.09 Asthma J45.909 Diabetes type 2, controlled E11.9 Diabetes mellitus complication status: without complication Diabetes mellitus detention insulin use: without detention use Hypertension I10 Transaminitis R74.01 (1) Diabetes type 2, controlled Diabetes mellitus complication status: without complication Diabetes mellitus ferry terminal agent insulin use: without detention use Qualified Code(s): E11.9 - Type 2 diabetes mellitus without complications
[2022-02-16] MEDS: IRBESARTAN 150 MG TAB PO SCH (20:38)
[2022-02-16] MEDS: ESCITALOPRAM OXALATE 10 MG TAB PO SCH (20:38)
[2022-02-17] MEDS: INSULIN ASPART PER UNIT SC SCH ×4 (07:47→21:37)
[2022-02-17] MEDS: CHLORTHALIDONE 25 MG TAB PO SCH (07:50)
[2022-02-17] MEDS: ASPIRIN 81 MG ECTAB PO SCH (07:50)
[2022-02-17] MEDS: metFORMIN HCL 500 MG TAB PO SCH ×2 (07:50→17:23)
[2022-02-17] MEDS: HEPARIN SOD 5,000 UNIT/0.5 ML VIAL SQ SCH ×2 (07:50→21:33)
[2022-02-17] MEDS: DOCUSATE SODIUM 100 MG CAP PO SCH ×2 (07:51→21:32)
[2022-02-17 16:42] LABS: Base Excess VBG 4.7 mEq/L; HCO3 VBG 28 mmol/L; Oxygen Saturation VBG 80.5 %; PCO2 VBG 37 mmHg (38-50); PO2 VBG 46 mmHg; pH VBG 7.49 (7.36-7.41)
[2022-02-17 16:45] LABS: Basophils # (auto) 0.04 K/uL (0-0.2); Basophils % (auto) 0.7 %; Eosinophils # (auto) 0.33 K/uL (0-0.50); Eosinophils % (auto) 5.5 %; Hematocrit (blood only) 41.7 % (40.1-51.0); Hemoglobin 14.5 g/dl (14.0-18.0); Immature Granulocytes # (auto) 0.03 K/uL (0.00-0.02); Immature Granulocytes % (auto) 0.5 %; Lymphocytes % (auto) 9.9 %; Mean Corpuscular Hemoglobin 30.3 pg (25.0-34.0); Mean Corpuscular Hgb Conc 34.8 g/dL (32.0-36.0); Mean Corpuscular Volume 87.2 fL (80.0-100.0); Mean Platelet Volume 9.1 fL (9.4-12.4); Monocytes # (auto) 0.89 K/uL (0.24-0.82); Monocytes % (auto) 14.7 %; Neutrophils # (auto) 4.15 K/uL (1.4-6.5); Neutrophils % (auto) 68.7 %; Platelet Count 195 K/uL (130-400); RDW Coefficient of Variation 14.2 % (11.5-14.5); RDW Standard Deviation 45.4 fL (36.4-46.3); Red Blood Count 4.78 M/uL (4.63-6.08); White Blood Count 6.04 K/ul (4.8-10.8)
[2022-02-17 17:11] LABS: Albumin Globulin Ratio 1.7 (0.9-2); Albumin Level 4.1 gm/dl (3.4-5.0); BUN Creatinine Ratio 25.8 (10-20); Bilirubin,Total 0.6 mg/dl (0.2-1.0); Calcium 9.8 mg/dl (8.5-10.1); Est GFR (African American) 93.4 ml/min; Est GFR (Non-African American) 80.6 ml/min; Globulin 2.4 gm/dl (2.5-4.0); Potassium 3.8 mmol/L (3.5-5.1); Total Protein 6.5 gm/dl (6.0-8.3)
[2022-02-17 17:16] LABS: Troponin I High Sensitivity 7.5 pg/ml (0-20)
[2022-02-17] MEDS: IRBESARTAN 150 MG TAB PO SCH (21:33)
[2022-02-17] MEDS: ESCITALOPRAM OXALATE 10 MG TAB PO SCH (21:33)
--- NOTE | 2022-02-17 23:29 | Hospitalist Progress Note ---
Date of Service February 17, 2022 Assessment & Plan (1) Glioblastoma multiforme of brain: Plan: Currently undergoing radiaton and chemotherapy follows with [facility] and rad onc at [facility] - rad onc consultation completed treatment in house - Temozolomide on hold- son states he finished this 02/09/22- non-formulary - Patient wishes to remain full code but has living will at home -lexapro start 02/15/22 patient refusing IV access (2) Decreased functional mobility and endurance: Plan: likey secondary to above with stress of treatments - he has no focal deficits as he was able to help me slide him up in bed - PT/OT with ability to participate and needed support to maintain physical abilities (3) Asthma: Plan: stable Last spirometry 2007 - continue albuterol (4) Diabetes type 2, controlled: Plan: sliding scale aspart, restart metformin (5) Hypertension: Plan: Continue with irbesartan or equivalent - irbesartan appears to have been started in November from Losartan - continue chlorthalidone (6) Transaminitis: Plan: Elevated with normal bili and alkp04 was normal in November prior to chemo and radiation - Ammonia 26 -continue to trend toward normal maybe chemotherapy associated? Admission and Anticipated Discharge Date Admission Date: February 10, 2022 Subjective patient reports no new complaints. Review of Systems Review of Systems: All systems reviewed & are unremarkable except as noted in HPI & below Physical Exam Physical Exam: The patient appeared well nourished and normally developed. Vital signs as documented. Head exam with shaved head on one side Neck is without JVD, thyromegaly, or carotid bruits. Lungs are clear to auscultation, no focal loss of breath sounds Cardiac exam, Rhythm is regular.. No murmurs, rubs or gallops. Abdominal exam reveals normal bowel sounds, soft non tender, no masses Extremities are nonedematous and both pedal pulses are present Neurologic exam is alert and oriented, some slow movement and speech Skin is without bruises or rashes Results & Data Results & Data ([facility]) Vital Signs (Past 12 Hours) Vital Signs Temp Pulse Pulse Resp BP BP Pulse Ox 02/17/22 21:26 37.1 C 84 12 154/89 H 95 02/17/22 18:12 36.9 C 104 H 16 129/83 97 02/17/22 16:03 36.8 C 111 H 18 110/76 95 08/31/22 12:09 36.8 C 110 H 20 144/87 H 94 O2 Del Method 02/17/22 21:26 Room Air 02/17/22 18:12 Room Air 02/17/22 16:03 Room Air 02/17/22 12:09 PG Care Time/CCT Total # of Minutes Spent Total Time Spent with Patient: Total time spent is greater than 50% in coordination of care (as documented) at patient's floor/unit and/or counseling patient: Coding Level of Care Code 94884 Subseq Hosp Care Lvl 2 Diagnoses Glioblastoma multiforme of brain C71.9 Decreased functional mobility and endurance Z74.09 Asthma J45.909 Diabetes type 2, controlled E11.9 Diabetes mellitus complication status: without complication Diabetes mellitus half-way insulin use: without half-way use Hypertension I10 Transaminitis R74.01 (1) Diabetes type 2, controlled Diabetes mellitus complication status: without complication Diabetes mellitus half-way insulin use: without half-way use Qualified Code(s): E11.9 - Type 2 diabetes mellitus without complications
[2022-02-18] MEDS: metFORMIN HCL 500 MG TAB PO SCH ×2 (08:02→17:15)
[2022-02-18] MEDS: ASPIRIN 81 MG ECTAB PO SCH (08:02)
[2022-02-18] MEDS: CHLORTHALIDONE 25 MG TAB PO SCH (08:02)
[2022-02-18] MEDS: HEPARIN SOD 5,000 UNIT/0.5 ML VIAL SQ SCH ×2 (08:03→22:56)
--- NOTE | 2022-02-18 08:12 | Hospitalist Progress Note ---
Date of Service February 18, 2022 Assessment & Plan (1) Glioblastoma multiforme of brain: Plan: Currently undergoing radiation and chemotherapy follows with [facility] and rad onc at [facility] - rad onc consultation completed treatment in house - Temozolomide on hold- son states he finished this 02/09/22 - non-formulary - Patient wishes to remain full code but has living will at home Lexapro start 02/15/22 -- place on hold for now, ?hyponatremia inducing, has had worsening hyponatremia since starting (134 prir, 129 on AM labs). TSH wnl 1.74 Ordered 500cc NSS @ 80cc/hr for some mild dehydration 02/[address] chlorthalidone on hold apparently patient ripped out IV 02/17 and refused to have another placed. He said ok when asked if we could place another, RN asked this evening prior to starting IVF and patient agreeable ?decreasing this dose and possible consider adding low dose amlodipine for BP control if needed rather than diuretics if patient not having great PO intake Repeat CT head negative 02/18 ?if any possible absent seizure activity --> no cheek bite sheehan/evidence on exam but does have some blank staring at time, appeared irritated about continued inpatient stay consider EEG in AM/discussion with Neuro pending status with IV hydration PT/OT consulted --> awaiting rehab. Son willing to complete application for [facility], they are working on 24/7 supervision at home and could consider if that is arranged. Will plan to call and update this evening if possible, otherwise would strongly encourage touching base in AM as CM reports no update in several days (2) Decreased functional mobility and endurance: Plan: likey secondary to above with stress of treatments no focal deficits, however slowed speech (prior days reported as well, repeat CT head negative) Will also check B12 w/ AM labs PT/OT consulted as above (3) Asthma: Plan: stable Last spirometry 2007 - continue albuterol no sob reported, stable on room air (4) Diabetes type 2, controlled: Plan: sliding scale aspart, restarted home metformin (will place on hold and utilize SSI while inpatient while monitoring labs/attempting to hydrate) (5) Hypertension: Plan: Continue with irbesartan or equivalent - irbesartan appears to have been started in November from Losartan - continue chlorthalidone --> placed on hold as appears mildly dehydrated on examination and low Na/Cl Will add amlodipine 5mg x 1 now, schedule for AM given continued elevations in BP Repeated CT head, negative Denied ANGEL/CP/SOB consider decreased amount diuretics pending PO intake/BPs, consider increased amlodipine if needed (just adding 02/18) (6) Transaminitis: Plan: Elevated with normal bili and alkp04 was normal in November prior to chemo and radiation - Ammonia 26 -continue to trend toward normal maybe chemotherapy associated? LFts stable/improving (AST/ALT), TB/ALP wnl monitor Plan continued inpatient stay, awaiting SNF, CM following family working on 10/01 care for at home Admission and Anticipated Discharge Date Admission Date: February 10, 2022 Supervising Physician Co-Signing Physician Notes Attending Attestation - Chart reviewed, care plan d/w MARY Biswas. I agree w/ the mcfarlane components of her documentation. Harsha Daniel MD Subjective Evaluated this morning, flat affect, answering yes/no to most questions. Stares out the window at time. When asked about fever/chill, chest pain, shortness of breath, abdominal pain, dysuria, patient states no. Appears frustrated and agitated about continued inpatient stay and waiting rehab. Initially concerns possibly CVA given blank stares vs ?absent seizure activity by nursing. Repeat CT head negative. Apparently patient more quite in AM, and more conversive through the day. Review of Systems Review of Systems: All systems reviewed & are unremarkable except as noted in HPI & below Physical Exam Physical Exam: General: WD male sitting up in chair, looking out window, NAD HEENT: shaved head on one size, pupils equal and reactive, trachea midline without deviation, mm slightly dry Resp: no tachypnea, cough, no respiratory distress, lungs CTAB, no w/c, diminished in the bases, on room air CV: RRR, no m/r/g, no calf edema/tenderness GI: +BS, soft nontender : no hinson MSk/Neuro: moves all extremities Psych: alert, oriented to person/place, slowed speech, short answers, primarily yes/no, able to track with eyes, follow commands but requested to be let to sleep, easily distracted, continued verbal cues for directions Results & Data Results & Data ([facility]) Vital Signs (Past 12 Hours) Vital Signs Temp Pulse Resp BP Pulse Ox O2 Del Method 02/18/22 05:20 36.8 C 86 14 150/89 H 94 Room Air 02/17/22 21:00 Room Air 02/17/22 21:26 37.1 C 84 12 154/89 H 95 Room Air Laboratory Results 02/18/22 02/18/22 02/18/22 Range/Units 12:08 08:53 08:53 WBC 4.80 (4.8-10.8) K/ul RBC 4.68 (4.63-6.08) M/uL Hgb 14.2 (14.0-18.0) g/dl Hct 41.4 (40.1-51.0) % MCV 88.5 (80.0-100.0) fL MCH 30.3 (25.0-34.0) pg MCHC 34.3 (32.0-36.0) g/dL RDW Std Deviation 46.4 H (36.4-46.3) fL RDW Coeff of Darrick 14.6 H (11.5-14.5) % Plt Count 171 (130-400) K/uL MPV 9.0 L (9.4-12.4) fL Sodium 129 L (136-145) mmol/L Potassium 4.0 (3.5-5.1) mmol/L Chloride 95 L (98-107) mmol/L Carbon Dioxide 25 (21-32) mmol/L Anion Gap 9 (3-11) BUN 20 (6-23) mg/dl Creatinine 0.69 (0.6-1.4) mg/dl Est Cr Clr Drug Dosing 106.9 ml/min Est GFR ( Amer) 108.4 ml/min Est GFR (Non-Af Amer) 93.5 ml/min BUN/Creatinine Ratio 29.0 H (10-20) Glucose 120 H (70-99(Fasting)) mg/dl POC Glucose 162 H (70-99) mg/dl Calcium 9.6 (8.5-10.1) mg/dl Magnesium 1.9 (1.7-2.4) mg/dl Total Bilirubin 0.7 (0.2-1.0) mg/dl Direct Bilirubin 0.1 (0-0.2) mg/dl AST 41 H (13-39) U/L ALT 113 H (7-52) U/L Alkaline Phosphatase 56 (34-104) U/L Troponin I High Sens (0-20) pg/ml Total Protein 6.3 (6.0-8.3) gm/dl Albumin 4.1 (3.4-5.0) gm/dl Globulin (2.5-4.0) gm/dl Albumin/Globulin Ratio (0.9-2) 02/18/22 02/17/22 02/17/22 Range/Units 08:15 21:30 16:29 WBC (4.8-10.8) K/ul RBC (4.63-6.08) M/uL Hgb (14.0-18.0) g/dl Hct (40.1-51.0) % MCV (80.0-100.0) fL MCH (25.0-34.0) pg MCHC (32.0-36.0) g/dL RDW Std Deviation (36.4-46.3) fL RDW Coeff of Darrick (11.5-14.5) % Plt Count (130-400) K/uL MPV (9.4-12.4) fL Sodium 128 L (136-145) mmol/L Potassium 3.8 (3.5-5.1) mmol/L Chloride 93 L (98-107) mmol/L Carbon Dioxide 25 (21-32) mmol/L Anion Gap 10 (3-11) BUN 24 H (6-23) mg/dl Creatinine 0.93 (0.6-1.4) mg/dl Est Cr Clr Drug Dosing 78.0 ml/min Est GFR ( Amer) 93.4 ml/min Est GFR (Non-Af Amer) 80.6 ml/min BUN/Creatinine Ratio 25.8 H (10-20) Glucose 127 H (70-99(Fasting)) mg/dl POC Glucose 112 H 127 H (70-99) mg/dl Calcium 9.8 (8.5-10.1) mg/dl Magnesium (1.7-2.4) mg/dl Total Bilirubin 0.6 (0.2-1.0) mg/dl Direct Bilirubin (0-0.2) mg/dl AST 40 H (13-39) U/L ALT 120 H (7-52) U/L Alkaline Phosphatase 53 (34-104) U/L Troponin I High Sens 7.5 (0-20) pg/ml Total Protein 6.5 (6.0-8.3) gm/dl Albumin 4.1 (3.4-5.0) gm/dl Globulin 2.4 L (2.5-4.0) gm/dl Albumin/Globulin Ratio 1.7 (0.9-2) Diagnostic Findings Head CT 02/18/22 14:28 CT head/brain wo con CLINICAL HISTORY: ?stroke Technique: Contiguous axial CT images of the head were acquired from the base of the skull to the vertex without intravenous contrast administration. Images were viewed in brain, subdural and bone windows. Automated dose lowering techniques and/or adjustment according to patient size were utilized for this exam. Comparison: Comparison is made to CT head 02/10/2022 Findings: Areas of decreased attenuation are present in the periventricular and subcortical white matter bilaterally consistent with small vessel ischemic disease. Generalized cerebral atrophy with commensurate enlargement of the ventricles, sulci, and cisterns is also present. There is no acute intracranial hemorrhage or evidence of acute territorial infarction. No shift of the midline structures, mass effect, or extra-axial abnormalities are shown. Atherosclerotic calcifications are present in the intracranial segments of the internal carotid arteries. Postsurgical changes and multiple encephalomalacia are seen in the left temporal region. Imaged portions of the paranasal sinuses and mastoid air cells are clear. The orbits appear normal. There are no acute fractures of the calvaria or scalp swelling. A calcified nodule in the posterior scalp may represent a sebaceous cyst or other benign nodule. Impression: No acute intracranial hemorrhage, no evidence of acute territorial infarction or other acute intracranial disease process. ACT 112: Negative or not required by law. Electronically signed by: Jose Meneses M.D. 02/18/2022 3:37 PM PG Care Time/CCT Total # of Minutes Spent Total Time Spent with Patient: Total time spent is greater than 50% in coordination of care (as documented) at patient's floor/unit and/or counseling patient: Coding Level of Care Code 79494 Subseq Hosp Care Lvl 3 Diagnoses Glioblastoma multiforme of brain C71.9 Decreased functional mobility and endurance Z74.09 Asthma J45.909 Diabetes type 2, controlled E11.9 Diabetes mellitus complication status: without complication Diabetes mellitus prison insulin use: without longwall headgate operator use Hypertension I10 Transaminitis R74.01 (1) Diabetes type 2, controlled Diabetes mellitus complication status: without complication Diabetes mellitus longwall headgate operator insulin use: without longwall headgate operator use Qualified Code(s): E11.9 - Type 2 diabetes mellitus without complications
[2022-02-18 09:14] LABS: Hematocrit (blood only) 41.4 % (40.1-51.0); Hemoglobin 14.2 g/dl (14.0-18.0); Mean Corpuscular Hemoglobin 30.3 pg (25.0-34.0); Mean Corpuscular Hgb Conc 34.3 g/dL (32.0-36.0); Mean Corpuscular Volume 88.5 fL (80.0-100.0); Platelet Count 171 K/uL (130-400); RDW Coefficient of Variation 14.6 % (11.5-14.5); RDW Standard Deviation 46.4 fL (36.4-46.3); Red Blood Count 4.68 M/uL (4.63-6.08)
[2022-02-18] MEDS: INSULIN ASPART PER UNIT SC SCH ×4 (09:20→22:57)
[2022-02-18] MEDS: DOCUSATE SODIUM 100 MG CAP PO SCH ×2 (09:21→22:56)
[2022-02-18 09:36] LABS: Albumin Level 4.1 gm/dl (3.4-5.0); Bilirubin Direct 0.1 mg/dl (0-0.2); Bilirubin,Total 0.7 mg/dl (0.2-1.0); Calcium 9.6 mg/dl (8.5-10.1); Creatinine Clr Calc Pharmacy 106.9 ml/min; Est GFR (African American) 108.4 ml/min; Est GFR (Non-African American) 93.5 ml/min; Magnesium 1.9 mg/dl (1.7-2.4); Total Protein 6.3 gm/dl (6.0-8.3)
--- NOTE | 2022-02-18 15:38 | CT Scan Report ---
CT head/brain wo con CLINICAL HISTORY: ?stroke Technique: Contiguous axial CT images of the head were acquired from the base of the skull to the bobo nereyda without intravenous contrast administration. Images were viewed in brain, subdural and bone [facility]. Automated dose lowering techniques and/or adjustment according to patient size were utilized for this exam. Comparison: Comparison is made to CT head 02/10/2022 Findings: Areas of decreased attenuation are present in the periventricular and subcortical white matter bilate rally consistent with small vessel ischemic disease. Generalized cerebral atrophy with commensurate e nlargement of the ventricles, sulci, and cisterns is also present. There is no acute intracranial hem orrhage or evidence of acute territorial infarction. No shift of the midline structures, mass effect, or extra-axial abnormalities are shown. Atherosclerotic calcifications are present in the intracran ial segments of the internal carotid arteries. Postsurgical changes and multiple encephalomalacia ar e seen in the left temporal region. Imaged portions of the paranasal sinuses and mastoid air cells are clear. The orbits appear normal. There are no acute fractures of the calvaria or scalp swelling. A calcified nodule in the posterior scalp may represent a sebaceous cyst or other benign nodule. Impression: No acute intracranial hemorrhage, no evidence of acute territorial infarction or other acute intracra nial disease process. ACT 112: Negative or not required by law. Electronically signed by: Jose Meneses M.D. 02/18/2022 3:37 PM
[2022-02-18] MEDS ORDERED: SODIUM CHLORIDE 0.9% 500 ML IV SCH (17:00)
[2022-02-18] MEDS ORDERED: amLODIPine BESYLATE 5 MG TAB PO ONE (17:30)
[2022-02-18] MEDS: IRBESARTAN 150 MG TAB PO SCH (22:55)
[2022-02-19 06:17] LABS: Hematocrit (blood only) 40.6 % (40.1-51.0); Hemoglobin 13.7 g/dl (14.0-18.0); Mean Corpuscular Hgb Conc 33.7 g/dL (32.0-36.0); Mean Corpuscular Volume 88.8 fL (80.0-100.0); Mean Platelet Volume 9.1 fL (9.4-12.4); Platelet Count 175 K/uL (130-400); RDW Coefficient of Variation 14.3 % (11.5-14.5); RDW Standard Deviation 46.5 fL (36.4-46.3); Red Blood Count 4.57 M/uL (4.63-6.08); White Blood Count 4.69 K/ul (4.8-10.8)
[2022-02-19 06:40] LABS: BUN Creatinine Ratio 26.5 (10-20); Calcium 9.5 mg/dl (8.5-10.1); Creatinine Clr Calc Pharmacy 88.9 ml/min; Est GFR (African American) 100.5 ml/min; Est GFR (Non-African American) 86.7 ml/min; Magnesium 1.9 mg/dl (1.7-2.4); Potassium 3.8 mmol/L (3.5-5.1)
--- NOTE | 2022-02-19 09:06 | Hospitalist Progress Note ---
Date of Service February 19, 2022 Assessment & Plan (1) Glioblastoma multiforme of brain: Plan: Currently undergoing radiation and chemotherapy [facility] and rad onc at [facility] - rad onc consultation completed treatment in house - Temozolomide on hold- son states he finished this 02/09/22 - non-formulary - Patient wishes to remain full code but has living will at home Lexapro start 02/15/22 -- place on hold for now, ?hyponatremia inducing, has had worsening hyponatremia since starting (134 prir, 129 on AM labs). TSH wnl 1.[address] chlorthalidone on hold Repeat CT head negative 02/18 PT/OT consulted --> awaiting rehab. Son willing to complete application for [employer], they are working on 10/01 supervision at home and could consider if that is arranged. (2) Decreased functional mobility and endurance: Plan: likey secondary to above with stress of treatments no focal deficits, however slowed speech (prior days reported as well, repeat CT head negative) PT/OT consulted as above (3) Asthma: Plan: Last spirometry 2007 - continue albuterol (4) Diabetes type 2, controlled: Plan: sliding scale aspart, restarted home metformin (5) Hypertension: Plan: Continue with irbesartan or equivalent - irbesartan appears to have been started in November from [facility] - amlodipine started in replace of chlorthalidone Repeated CT head, negative Denied ANGEL/CP/SOB (6) Transaminitis: Plan: Elevated with normal bili and alkp04 was normal in November prior to chemo and radiation - Ammonia 26 -continue to trend toward normal maybe chemotherapy associated? LFts stable/improving (AST/ALT), TB/ALP wnl monitor Plan continued inpatient stay, awaiting SNF, CM following family working on 10/01 care for at home Admission and Anticipated Discharge Date Admission Date: February 10, 2022 Subjective Evaluated this morning, flat affect. Repeat CT head negative. Apparently patient more quite in AM, and more conversive through the day. Pt has intermittent periods of confusion Review of Systems Review of Systems: Mild distress and fatigue no headache, no visual changes slow speech, no swallowing issues no chest pain, pressure or palpitations no shortness of breath, cough or wheezes no abdominal pain, nausea or vomiting, diarrhea or constipation no dysuria, hematuria or frequency no focal joint pain or swelling no back pain, CVA tenderness or radicular pain no bruising, bleeding or rashes no focal signs of weakness or numbness or altered sensation Physical Exam Physical Exam: The patient appeared well nourished and normally developed. Vital signs as documented. Head exam with shaved head on one side Neck is without JVD, thyromegaly, or carotid bruits. Lungs are clear to auscultation, no focal loss of breath sounds Cardiac exam, Rhythm is regular.. No murmurs, rubs or gallops. Abdominal exam reveals normal bowel sounds, soft non tender, no masses Extremities are nonedematous and both pedal pulses are present Neurologic exam is alert and oriented, some slow movement and speech Skin is without bruises or rashes Results & Data Results & Data ([facility]) Vital Signs (Past 12 Hours) Vital Signs Temp Pulse Resp BP Pulse Ox Pulse Ox O2 Del Method 02/19/22 07:35 Room Air 02/19/22 07:11 98.2 F 90 16 156/84 H 94 Room Air 02/19/22 00:00 94 O2 Del Method 02/19/22 07:35 02/19/22 07:11 02/19/22 00:00 Room Air PG Care Time/CCT Total # of Minutes Spent Total Time Spent with Patient: Total time spent is greater than 50% in coordination of care (as documented) at patient's floor/unit and/or counseling patient: Coding Level of Care Code 64063 Subseq Hosp Care Lvl 2 Diagnoses Glioblastoma multiforme of brain C71.9 Decreased functional mobility and endurance Z74.09 Asthma J45.909 Diabetes type 2, controlled E11.9 Diabetes mellitus complication status: without complication Diabetes mellitus skilled nursing insulin use: without middle or intermediate school principal use Hypertension I10 Transaminitis R74.01 (1) Diabetes type 2, controlled Diabetes mellitus complication status: without complication Diabetes mellitus middle or intermediate school principal insulin use: without middle or intermediate school principal use Qualified Code(s): E11.9 - Type 2 diabetes mellitus without complications
[2022-02-19] MEDS: ASPIRIN 81 MG ECTAB PO SCH (09:15)
[2022-02-19] MEDS: HEPARIN SOD 5,000 UNIT/0.5 ML VIAL SQ SCH ×2 (09:15→22:04)
[2022-02-19] MEDS: DOCUSATE SODIUM 100 MG CAP PO SCH ×2 (09:15→22:04)
[2022-02-19] MEDS: amLODIPine BESYLATE 5 MG TAB PO SCH (09:15)
[2022-02-19] MEDS: INSULIN ASPART PER UNIT SC SCH ×4 (09:17→22:44)
[2022-02-19] MEDS: metFORMIN HCL 500 MG TAB PO SCH (18:16)
[2022-02-19] MEDS: IRBESARTAN 150 MG TAB PO SCH (22:04)
[2022-02-20] MEDS: metFORMIN HCL 500 MG TAB PO SCH ×2 (08:41→17:52)
[2022-02-20] MEDS: amLODIPine BESYLATE 5 MG TAB PO SCH (08:42)
[2022-02-20] MEDS: HEPARIN SOD 5,000 UNIT/0.5 ML VIAL SQ SCH ×2 (08:42→20:18)
[2022-02-20] MEDS: ASPIRIN 81 MG ECTAB PO SCH (08:42)
[2022-02-20] MEDS: DOCUSATE SODIUM 100 MG CAP PO SCH ×2 (08:47→20:18)
[2022-02-20] MEDS: INSULIN ASPART PER UNIT SC SCH ×4 (10:15→21:41)
--- NOTE | 2022-02-20 18:39 | Hospitalist Progress Note ---
Date of Service February 20, 2022 Assessment & Plan (1) Glioblastoma multiforme of brain: Plan: Currently undergoing radiation and chemotherapy [facility] with [facility] and rad onc at [facility] - rad onc consultation completed treatment in house - Temozolomide on hold- son states he finished this 02/09/22 - non-formulary - Patient wishes to remain full code but has living will at home Lexapro start 02/15/22 -- place on hold for now, ?hyponatremia inducing, has had worsening hyponatremia since starting (134 prir, 129 on AM labs). TSH wnl 1.74 chlorthalidone on hold Repeat CT head negative 02/18 PT/OT consulted --> awaiting rehab. Son willing to complete application for [employer], they are working on 10/01 supervision at home and could consider if that is arranged. (2) Decreased functional mobility and endurance: Plan: likey secondary to above with stress of treatments no focal deficits, however slowed speech (prior days reported as well, repeat CT head negative) PT/OT consulted as above (3) Asthma: Plan: Last spirometry 2007 - continue albuterol (4) Diabetes type 2, controlled: Plan: sliding scale aspart, restarted home metformin (5) Hypertension: Plan: Continue with irbesartan or equivalent - irbesartan appears to have been started in November from [facility] - amlodipine started in replace of chlorthalidone Repeated CT head, negative Denied ANGEL/CP/SOB (6) Transaminitis: Plan: Elevated with normal bili and alkp04 was normal in November prior to chemo and radiation - Ammonia 26 -continue to trend toward normal maybe chemotherapy associated? LFTs stable/improving (AST/ALT), TB/ALP wnl monitor Plan continued inpatient stay, awaiting SNF, CM following family working on 10/01 care for at home Admission and Anticipated Discharge Date Admission Date: February 10, 2022 Subjective No acute concerns or questions. Patient awaiting rehab at this time. Review of Systems Review of Systems: All systems reviewed & are unremarkable except as noted in Subjective Physical Exam Constitutional: WD/WN, vitals as above Respiratory: normal respiratory effort Neurologic: moves all extremities and awake; not confused Psychiatric: A+Ox3, euthymic affect Results & Data Results & Data ([facility]) Vital Signs (Past 12 Hours) Vital Signs Temp Pulse Resp BP BP Pulse Ox O2 Del Method 02/20/22 16:07 37.3 C 111 H 18 116/79 96 Room Air 02/20/22 07:45 Room Air 02/20/22 07:41 36.8 C 83 16 129/78 97 Room Air PG Care Time/CCT Total # of Minutes Spent Total Time Spent with Patient: Total time spent is greater than 50% in coordination of care (as documented) at patient's floor/unit and/or counseling patient: Coding Level of Care Code 08928 Subseq Hosp Care Lvl 1 Diagnoses Glioblastoma multiforme of brain C71.9 Decreased functional mobility and endurance Z74.09 Asthma J45.909 Diabetes type 2, controlled E11.9 Diabetes mellitus complication status: without complication Diabetes mellitus nursing home insulin use: without nursing home use Hypertension I10 Transaminitis R74.01 (1) Diabetes type 2, controlled Diabetes mellitus complication status: without complication Diabetes mellitus nursing home insulin use: without intermodal dispatcher use Qualified Code(s): E11.9 - Type 2 diabetes mellitus without complications
[2022-02-20] MEDS: IRBESARTAN 150 MG TAB PO SCH (20:19)
[2022-02-21] MEDS: ASPIRIN 81 MG ECTAB PO SCH (09:21)
[2022-02-21] MEDS: metFORMIN HCL 500 MG TAB PO SCH ×2 (09:21→17:40)
[2022-02-21] MEDS: amLODIPine BESYLATE 5 MG TAB PO SCH (09:21)
[2022-02-21] MEDS: HEPARIN SOD 5,000 UNIT/0.5 ML VIAL SQ SCH ×2 (09:21→20:42)
[2022-02-21] MEDS: INSULIN ASPART PER UNIT SC SCH ×4 (09:21→20:34)
[2022-02-21] MEDS: DOCUSATE SODIUM 100 MG CAP PO SCH ×2 (09:23→20:42)
[2022-02-21] MEDS: IRBESARTAN 150 MG TAB PO SCH (20:42)
--- NOTE | 2022-02-22 07:33 | Hospitalist Progress Note ---
Date of Service February 21, 2022 Assessment & Plan (1) Glioblastoma multiforme of brain: Plan: Currently undergoing radiation and chemotherapy follows with [facility] and rad onc at [facility] - rad onc consultation completed treatment in house - Temozolomide on hold- son states he finished this 02/09/22 - non-formulary - Patient wishes to remain full code but has living will at home Lexapro start 02/15/22 -- place on hold for now, ?hyponatremia inducing, has had worsening hyponatremia since starting (134 prir, 129 on AM labs). TSH wnl 1.74 chlorthalidone on hold, will repeat BMP tomorrow. Repeat CT head negative 02/18 PT/OT consulted --> awaiting rehab. Son willing to complete application for [employer], they are working on 10/01 supervision at home and could consider if that is arranged. (2) Decreased functional mobility and endurance: Plan: likey secondary to above with stress of treatments no focal deficits, however slowed speech (prior days reported as well, repeat CT head negative) PT/OT consulted as above (3) Asthma: Plan: Last spirometry 2007 - continue albuterol (4) Diabetes type 2, controlled: Plan: sliding scale aspart, restarted home metformin (5) Hypertension: Plan: Continue with irbesartan or equivalent - irbesartan appears to have been started in November from [facility] - amlodipine started in replace of chlorthalidone Repeated CT head, negative Denied ANGEL/CP/SOB (6) Transaminitis: Plan: Elevated with normal bili and alkp04 was normal in November prior to chemo and radiation - Ammonia 26 -continue to trend toward normal maybe chemotherapy associated? LFTs stable/improving (AST/ALT), TB/ALP wnl monitor Plan continued inpatient stay, awaiting SNF, CM following family working on 10/01 care for at home Admission and Anticipated Discharge Date Admission Date: February 10, 2022 Subjective No acute concerns or questions. Review of Systems Review of Systems: All systems reviewed & are unremarkable except as noted in Subjective Physical Exam Constitutional: WD/WN, vitals as above Neck: trachea midline, no thyromegaly Respiratory: normal respiratory effort, lungs clear to auscultation Cardiovascular: Rate/Rhythm: regular rate and regular rhythm Heart Sounds: no murmur Extremities: normal capillary refill and + pedal edema (1+ b/l edema pitting) Gastrointestinal (Abdomen): normal bowel sounds, soft, nontender, no hepatosplenomegaly Musculoskeletal: no cyanosis or clubbing, extremities motor strength 5/5 Skin: no rashes, warm and dry Neurologic: moves all extremities and awake; not confused Results & Data Results & Data ([facility]) Vital Signs (Past 12 Hours) Vital Signs Temp Pulse Resp BP Pulse Ox O2 Del Method 02/21/22 22:55 37 C 114 H 17 146/86 H 93 Room Air 02/21/22 20:39 147/96 H PG Care Time/CCT Total # of Minutes Spent Total Time Spent with Patient: Total time spent is greater than 50% in coordination of care (as documented) at patient's floor/unit and/or counseling patient: Coding Level of Care Code 17861 Subseq Hosp Care Lvl 1 Diagnoses Glioblastoma multiforme of brain C71.9 Decreased functional mobility and endurance Z74.09 Asthma J45.909 Diabetes type 2, controlled E11.9 Diabetes mellitus complication status: without complication Diabetes mellitus care home insulin use: without care home use Hypertension I10 Transaminitis R74.01 (1) Diabetes type 2, controlled Diabetes mellitus complication status: without complication Diabetes mellitus environmental law professor insulin use: without care home use Qualified Code(s): E11.9 - Type 2 diabetes mellitus without complications
[2022-02-22 08:16] LABS: BUN Creatinine Ratio 39.7 (10-20); Calcium 9.4 mg/dl (8.5-10.1); Creatinine Clr Calc Pharmacy 107.7 ml/min; Est GFR (Non-African American) 94.1 ml/min; Potassium 4.1 mmol/L (3.5-5.1)
[2022-02-22] MEDS: ASPIRIN 81 MG ECTAB PO SCH (08:54)
[2022-02-22] MEDS: INSULIN ASPART PER UNIT SC SCH ×4 (08:54→21:07)
[2022-02-22] MEDS: metFORMIN HCL 500 MG TAB PO SCH ×2 (08:55→17:44)
[2022-02-22] MEDS: HEPARIN SOD 5,000 UNIT/0.5 ML VIAL SQ SCH ×2 (08:55→21:06)
[2022-02-22] MEDS: amLODIPine BESYLATE 5 MG TAB PO SCH (08:55)
[2022-02-22] MEDS: DOCUSATE SODIUM 100 MG CAP PO SCH ×2 (08:59→21:06)
[2022-02-22] MEDS: IRBESARTAN 150 MG TAB PO SCH (21:06)
--- NOTE | 2022-02-22 22:22 | Hospitalist Progress Note ---
Date of Service February 22, 2022 Assessment & Plan (1) Glioblastoma multiforme of brain: Plan: Currently undergoing radiation and chemotherapy follows with [facility] and rad onc at [facility] - rad onc consultation completed treatment in house - Temozolomide on hold- son states he finished this 02/09/22 - non-formulary - Patient wishes to remain full code but has living will at home Lexapro start 02/15/22 -- place on hold for now, ?hyponatremia inducing, has had worsening hyponatremia since starting (134 prir, 129 on AM labs). TSH wnl 1.74 chlorthalidone on hold, Na stable Repeat CT head negative 02/18 PT/OT consulted --> awaiting rehab. Son willing to complete application for [employer], they are working on 10/01 supervision at home and could consider HH if that is arranged. Medically stable for discharge pending placement (2) Decreased functional mobility and endurance: Plan: likey secondary to above with stress of treatments no focal deficits, however slowed speech (prior days reported as well, repeat CT head negative) PT/OT consulted as above (3) Asthma: Plan: Last spirometry 2007 - continue albuterol (4) Diabetes type 2, controlled: Plan: sliding scale aspart, restarted home metformin (5) Hypertension: Plan: Continue with irbesartan or equivalent - irbesartan appears to have been started in November from [facility] - amlodipine started in replace of chlorthalidone Repeated CT head, negative Denied ANGEL/CP/SOB (6) Transaminitis: Plan: Elevated with normal bili and alkp04 was normal in November prior to chemo and radiation - Ammonia 26 -continue to trend toward normal maybe chemotherapy associated? LFTs stable/improving (AST/ALT), TB/ALP wnl monitor Plan continued inpatient stay, awaiting SNF, CM following family working on 10/01 care for at home Admission and Anticipated Discharge Date Admission Date: February 10, 2022 Subjective No significant events overnight. No acute concerns or questions from the patient. Review of Systems Review of Systems: All systems reviewed & are unremarkable except as noted in Subjective Physical Exam Constitutional: WD/WN, vitals as above Respiratory: normal respiratory effort, lungs clear to auscultation Cardiovascular: Extremities: + pedal edema (1+ b/l edema pitting) Gastrointestinal (Abdomen): normal bowel sounds, soft, nontender, no hepatosplenomegaly Skin: no rashes, warm and dry Neurologic: moves all extremities and awake; not confused Results & Data Results & Data ([facility]) Vital Signs (Past 12 Hours) Vital Signs Temp Pulse Resp BP Pulse Ox O2 Del Method 02/22/22 21:56 36.8 C 93 H 20 122/75 96 Room Air 02/22/22 16:14 37.1 C 107 H 18 117/77 95 PG Care Time/CCT Total # of Minutes Spent Total Time Spent with Patient: Total time spent is greater than 50% in coordination of care (as documented) at patient's floor/unit and/or counseling patient: Coding Level of Care Code 71286 Subseq Hosp Care Lvl 1 Diagnoses Glioblastoma multiforme of brain C71.9 Decreased functional mobility and endurance Z74.09 Asthma J45.909 Diabetes type 2, controlled E11.9 Diabetes mellitus complication status: without complication Diabetes mellitus jail insulin use: without termite control technician use Hypertension I10 Transaminitis R74.01 (1) Diabetes type 2, controlled Diabetes mellitus complication status: without complication Diabetes mellitus termite control technician insulin use: without termite control technician use Qualified Code(s): E11.9 - Type 2 diabetes mellitus without complications
[2022-02-23] MEDS: metFORMIN HCL 500 MG TAB PO SCH ×2 (08:41→17:35)
[2022-02-23] MEDS: DOCUSATE SODIUM 100 MG CAP PO SCH ×2 (08:42→20:42)
[2022-02-23] MEDS: HEPARIN SOD 5,000 UNIT/0.5 ML VIAL SQ SCH ×2 (08:42→20:42)
[2022-02-23] MEDS: amLODIPine BESYLATE 5 MG TAB PO SCH (08:42)
[2022-02-23] MEDS: ASPIRIN 81 MG ECTAB PO SCH (08:42)
[2022-02-23] MEDS: INSULIN ASPART PER UNIT SC SCH ×2 (09:40→12:55)
[2022-02-23] MEDS: IRBESARTAN 150 MG TAB PO SCH (20:42)
[2022-02-24 07:55] VITALS: O2SAT 96
--- NOTE | 2022-02-24 08:35 | Hospitalist Progress Note ---
Date of Service February 23, 2022 Assessment & Plan (1) Glioblastoma multiforme of brain: Plan: Currently undergoing radiation and chemotherapy follows with [facility] and rad onc at [facility] - rad onc consultation completed treatment in house - Temozolomide on hold- son states he finished this 02/09/22 - non-formulary - Patient wishes to remain full code but has living will at home Lexapro start 02/15/22 -- place on hold for now, ?hyponatremia inducing, has had worsening hyponatremia since starting (134 prir, 129 on AM labs). TSH wnl 1.74 chlorthalidone on hold, Na stable Repeat CT head negative 02/18 PT/OT consulted --> awaiting rehab. Possibly [place] per case management notes. (2) Decreased functional mobility and endurance: Plan: likely secondary to above with stress of treatments no focal deficits, however slowed speech (prior days reported as well, repeat CT head negative) B12 WNL PT/OT continue to (3) Asthma: Plan: stable Last spirometry 2007 - continue albuterol no sob reported, stable on room air (4) Diabetes type 2, controlled: Plan: restarted home metformin can discontinue glucose checks as stable and not needing insulin (5) Hypertension: Plan: Continue with irbesartan or equivalent - irbesartan appears to have been started in November from [facility] - continue chlorthalidone --> placed on hold as appears mildly dehydrated on examination and low Na/Cl Will add amlodipine 5mg x 1 now, schedule for AM given continued elevations in BP Repeated CT head, negative Denied ANGEL/CP/SOB consider decreased amount diuretics pending PO intake/BPs, consider increased amlodipine if needed (just adding 02/18) (6) Transaminitis: Plan: Elevated with normal bili and alkp04 was normal in November prior to chemo and radiation - Ammonia 26 -continue to trend toward normal maybe chemotherapy associated? LFts stable/improving (AST/ALT), TB/ALP wnl monitor Plan continued inpatient stay, awaiting SNF, following Admission and Anticipated Discharge Date Admission Date: February 10, 2022 Subjective No significant events overnight. No acute concerns or questions from the patient. Awaiting placement at this time. Review of Systems Review of Systems: All systems reviewed & are unremarkable except as noted in Subjective Physical Exam Constitutional: WD/WN, vitals as above Respiratory: normal respiratory effort Psychiatric: A+Ox3, euthymic affect Results & Data Results & Data ([facility]) Vital Signs (Past 12 Hours) Vital Signs Temp Pulse Resp BP Pulse Ox O2 Del Method 02/24/22 08:09 Room Air 02/24/22 07:54 36.9 C 81 18 154/82 H 96 Room Air 02/23/22 22:12 36.9 C 89 16 142/85 H 93 Room Air PG Care Time/CCT Total # of Minutes Spent Total Time Spent with Patient: Total time spent is greater than 50% in coordination of care (as documented) at patient's floor/unit and/or counseling patient: Coding Level of Care Code 51650 Subseq Hosp Care Lvl 1 Diagnoses Glioblastoma multiforme of brain C71.9 Decreased functional mobility and endurance Z74.09 Asthma J45.909 Diabetes type 2, controlled E11.9 Diabetes mellitus complication status: without complication Diabetes mellitus prison insulin use: without buttermaker helper use Hypertension I10 Transaminitis R74.01 (1) Diabetes type 2, controlled Diabetes mellitus complication status: without complication Diabetes mellitus prison insulin use: without buttermaker helper use Qualified Code(s): E11.9 - Type 2 diabetes mellitus without complications
[2022-02-24] MEDS: HEPARIN SOD 5,000 UNIT/0.5 ML VIAL SQ SCH (08:49)
[2022-02-24] MEDS: ASPIRIN 81 MG ECTAB PO SCH (08:49)
[2022-02-24] MEDS: metFORMIN HCL 500 MG TAB PO SCH ×2 (08:49→16:31)
[2022-02-24] MEDS: amLODIPine BESYLATE 5 MG TAB PO SCH (08:49)
[2022-02-24] MEDS: DOCUSATE SODIUM 100 MG CAP PO SCH (08:52)
[2022-02-24 14:43] VITALS: BP 120/80; PULSE 96; TEMP 98.6
[2022-02-24] MEDS ORDERED: COVID19 Vaccine (Primary Series--Pfizer) 30mcg/0.3mL IM ONE (15:38)
--- NOTE | 2022-02-24 16:35 | Discharge Summary ---
Date of Service February 24, 2022 Admission HPI Per Admitting Provider 76 YOM with medcial history of : asthma, DM II, HTN, Chronic knee pain, catheter ablation for XX, ambulatory dysfunction, brain tumor currently undergoing oral chemo (last dose today) and radiation (missed appointment today). Patient presents to the [facility] today for increase in fatigue and inability to manage at home with mobility, physical therapy. He has home health and physical therapy that comes to the house, but due to his weight and increase in fatigue and weakness over the past 2 weeks they are having hard time getting him to mobilize safely or participate in his therapy. Over the past 2 weeks with his therapy he has become fatigued to where he has stopped ambulating as much and depnending on his wheel chair more often. They are having trouble at home getting onto and off of the toilet as well. His balance and endurance for his legs is decreasing. Patient will be admitted for PT/OT evaluation and rifle case repairer consultation for evalutin of return to [facility]. Patient was previously discharged from [facility] and has been home for about a month. Patient was diagnosed with glioblastoma following a fall with hemorrhage. He underwent resection 11/08 and lesion removal. He then started chemo and radiation therapy and he remains following with neuro-oncology at [facility]. He is currently undergoing radiation and just finished his oral temozolomide per son. His plan is to then have follow up imaging in February and then progress to further therapy with chemo and radiation. Overall the patient is fatigued and his goals are to return to a "normal state". We did discuss that goal right now would be to remain at a functional level through his treatments, he would be open to returning to a rehab facility. COVID test on admission is: NEGATIVe Principal Diagnosis Generalized weakness Discharge Exam Constitutional WD/WN, vitals as above Neck trachea midline, no thyromegaly Respiratory normal respiratory effort, lungs clear to auscultation normal respiratory effort Cardiovascular Rate/Rhythm: regular rate and regular rhythm Heart Sounds: no murmur Extremities: normal capillary refill and + pedal edema (1+ b/l edema pitting) Gastrointestinal (Abdomen) normal bowel sounds, soft, nontender, no hepatosplenomegaly Musculoskeletal no cyanosis or clubbing, extremities motor strength 5/5 Skin no rashes, warm and dry Neurologic moves all extremities and awake; not confused Psychiatric A+Ox3, euthymic affect Discharge Data Allergies Allergy/AdvReac Type Severity Reaction Status Date / Time No Known Allergies Allergy Verified 02/08/22 15:08 Consultations 02/10/22 18:22 ED Decision to Admit Stat 02/10/22 21:45 Consult Radiation Oncology Routine Ordered Studies 02/10/22 14:14 CT head/brain wo con Stat Impression: Encephalomalacia and postsurgical changes are seen in the right brain, unchanged. No acute abnormalities are seen. 02/10/22 20:50 CT Abd and Pelvis [CT abd pelvis IV con only] Urgent IMPRESSION: 1. The liver and biliary ducts appear normal. The appendix is normal. 2. Bilateral renal lesions are again seen which whether greater than simple fluid density. These are favored to represent proteinaceous/hemorrhagic cyst, but if not previously characterized, ultrasound is recommended to exclude solid mass. 02/18/22 14:28 CT head/brain wo con Urgent Impression: No acute intracranial hemorrhage, no evidence of acute territorial infarction or other acute intracranial disease process. Hospital Course (1) Glioblastoma multiforme of brain: Delmer Leiva is a 76 year old male admitted to [facility] from February 10 - February 23, 2022 due to generalized weakness and fatigue. Suspect this is due to his radiation and chemotherapy treatment. He completed temozolomide on February 09. No specific reversible etiology was found. However his sodium was low (but not expected to be causing his fatigue) - therefore his diuretic (chlorthalidone) was discontinued in favor of amlodipine to manage his blood pressure. CT head showed no an acute intracranial disease process. He has known glioblastoma multiforme of the brain. He received p hysical and occupational therapy during his inpatient stay and recommended further rehabilitation on discharge. He is now medically stable for discharge to [facility]. Bilateral renal lesions were seen on CT but are not new. Recommend continuing to follow up with his oncologist for this. (2) Decreased functional mobility and endurance: (3) Asthma: (4) Diabetes type 2, controlled: (5) Hypertension: (6) Transaminitis: Total Time Total Time Spent Total Time Spent (In Minutes): 25 Discharge Plan Discharge Items Patient Disposition: Transfer Alf Fac Reason For Visit: WEAKNESS, EVAL FOR REHAB Discharge Diagnosis: Generalized weakness Activity: Resume your previous activity Non-emergency contact: Primary Care Provider Call non-emergency contact if: you have any medication questions and your symptoms worsen Follow-up/Referrals: Krystal Quiroga PA-C [Physician Mill [employer]eder] - 06/23/22 1:15 pm Harsha Nava MD [Primary Care Provider] - [facility] Attending Provider Instructions: Delmer Leiva is a 76 year old male admitted to [facility] from February 10 - February 23, 2022 due to generalized weakness and fatigue. Suspect this is due to his radiation and chemotherapy treatment. He completed telezolomide on February 09. No specific reversible etiology was found. However his sodium was low (but not expected to be causing his fatigue) - therefore his diuretics were discontinued in favor of amlodipine to manage his blood pressure. CT head showed no an acute intracranial disease process. He has known glioblastoma multiforme of the brain. He received physical and occupational therapy during his inpatient stay and recommended further rehab ilitation on discharge. He is now medically stable for discharge to [facility]. Pending Studies at Discharge: No Stand-Alone Forms: My [facility] Skilled Items Patient informed of condition?: Yes DNR: No Discharge Level of Care: Acute rehab Communicable Disease: No Discharge Prognosis: Stable Lines: None Urinary Catheter: No Medications and DC Order Prescriptions: New amlodipine [Norvasc] 5 mg Tablet 5 mg PO QAM Qty: 30 0RF Continued ondansetron HCl 4 mg tablet 4 mg PO Q8H PRN (Reason: nausea and vomiting) docusate sodium [Colace] 100 mg capsule 100 mg PO BID naproxen sodium [Aleve] 220 mg capsule 440 mg PO BID PRN multivitamin Tablet 1 tab PO DAILY metformin 500 mg tablet extended release 24 hr 500 mg PO QDD irbesartan 300 mg tablet 300 mg PO HS Rx Instructions: duration 90 days cholecalciferol (vitamin D3) [Vitamin D3] 50 mcg (2,000 unit) Capsule 50 mcg PO QAM aspirin 81 mg Tablet,Delayed Release (Dr/Ec) 81 mg PO QAM Rx Instructions: hold until 11/23/21 calcium carbonate [Tums] 200 mg calcium (500 mg) Tablet,Chewable 200 mg PO UD PRN (Reason: Acid Reflux) melatonin 5 mg Tablet 5 mg PO HS PRN (Reason: Insomnia) sildenafil 100 mg Tablet 100 mg PO DAILY PRN (Reason: Erectile Dysfunction) Rx Instructions: take one tablet by mouth 1 hour prior to activity on an empty stomach as needed for erectile dysfunction albuterol sulfate 90 mcg/actuation Hfa Aerosol Inhaler 2 puff INHALATION QID PRN (Reason: Wheezing) Glucosamine Chondroitin 550-30-1 mg Capsule 1 cap PO DAILY Discontinued temozolomide 140 mg capsule 140 mg PO DAILY Rx Instructions: must be taken on empty stomach temozolomide 20 mg capsule 20 mg PO chlorthalidone 25 mg tablet 12.5 mg PO Q48H Rx Instructions: duration 90 days Discharge Orders: Discharge Order (Routine); Ordered 02/24/22 Ordered By: Harsha Heart Admission Data Admit Date/Time: 02/10/22 18:30 Attending Provider: Harsha Heart Admit Provider: Harsha Heart Primary Care Provider: Harsha Nava Other Providers: Harsha Heart ; Dane Argueta ; [facility] ; [facility] ; [facility] Other Interventions: Discharge Summary Assessment (RN) Last Done: 02/24/22 15:19 Coding Level of Care Code D/C DAY MANAGEMENT <30 MINS Diagnoses Glioblastoma multiforme of brain C71.9 Decreased functional mobility and endurance Z74.09 Asthma J45.909 Diabetes type 2, controlled E11.9 Diabetes mellitus complication status: without complication Diabetes mellitus jail insulin use: without buttermaker continuous churn use Hypertension I10 Transaminitis R74.01
== END 2022-02-24 17:18 | DRG 948 ==
LOC: ED 13:56 → EDINP 18:30 → SUATTDRO 18:30 → 2S 21:52 → 3N 02-17 18:08